=== PATIENT | female | born 1940 | race Caucasian/White ===

== ENCOUNTER 2017-02-01 11:14 | Inpatient (IN) ==
[2017-02-01] MEDS ORDERED: ATIVAN ONE (11:16)
[2017-02-01] MEDS ORDERED: DIPRIVAN 1% IV STA (11:25)
[2017-02-01] MEDS ORDERED: ASPIRIN PO STA (11:25)
[2017-02-01] MEDS ORDERED: DIPRIVAN 1% 1,000 MG/100 ML BOTTLE ONE ×2 (11:26→15:22)
[2017-02-01] MEDS ORDERED: ATIVAN IV ONE ×2 (11:37→13:10)
--- NOTE | 2017-02-01 11:37 | Diag Imaging Result Doc PS360 ---
EXAM: CHEST-1 VIEW HISTORY: arrest TECHNIQUE: Portable supine AP COMPARISON: 07/25/2016 FINDINGS: The lungs are well expanded. The heart is enlarged. The vessels are not distended. Increased density along the right heart border. No effusion identified. The endotracheal tube appears to be angled into the right mainstem bronchus. IMPRESSION: 1.Cardiomegaly 2.Right middle lobe infiltrate or atelectasis 3.The endotracheal tube may be in the right mainstem bronchus. The ER was called with this finding. Electronically signed by Андрей Brunner 02/01/2017 11:35 AM
[2017-02-01] MEDS: DIPRIVAN 1% 1,000 MG/100 ML BOTTLE IV SCH ×8 (11:48→21:04)
[2017-02-01] MEDS ORDERED: NS 500 ML IV ONE (11:51)
[2017-02-01 11:57] LABS: MANUAL DIFF NEEDED? NO
[2017-02-01 12:09] LABS: BASO% 0.5 % (0.0-0.8); EOS# 0.18 X1000 (0.0-0.7); EOS% 1.1 % (0.0-10.0); HEMATOCRIT 42.5 % (37.0-47.0); HEMOGLOBIN 13.5 g/dL (12.0-16.0); IMM GRAN% 4.7 % (0.0-0.5); LYMPH# 5.49 X1000 (1.2-3.4); LYMPH% 32.5 % (20.5-51.1); MCH 32.5 PG (27-31); MCHC 31.8 g/dL (33-37); MCV 102.4 FL (81-99); MONO# 0.54 X1000 (0.11-0.59); MONO% 3.2 % (1.7-9.3); MPV 12.4 FL (7.4-10.4); PLT 240 X1000 (130-400); RBC 4.15 XMIL (4.2-5.4)
--- NOTE | 2017-02-01 12:15 | Diag Imaging Result Doc PS360 ---
EXAM: CHEST-PORTABLE HISTORY: tube placement TECHNIQUE: COMPARISON: Compared to film taken 25 minutes earlier FINDINGS: The exam is compromised due to the patient's size. Heart remains enlarged. I'm unable to see the distal portion of the patient's tubes. No pleural effusions identified. IMPRESSION: Limited exam. The endotracheal tube may be in the trachea on the current study although it is difficult to see due to the patient's body habitus. Electronically signed by Андрей Brunner 02/01/2017 12:13 PM
--- NOTE | 2017-02-01 12:21 | Diag Imaging Result Doc PS360 ---
EXAM: CHEST/ABD TUBE PLACEMENT HISTORY: Tube Placement TECHNIQUE: Portable NG tube placement abdomen COMMENT: There is no identifiable NG tube. There is atherosclerotic calcification throughout the aorta. There is colonic gas. IMPRESSION: No identified tube. Electronically signed by Sai Lawrence 02/01/2017 12:19 PM
[2017-02-01 12:22] LABS: INR 1.05; PROTIME 11.1 Seconds (9.2-11.7); PTT 27.8 Seconds (22.0-36.0)
[2017-02-01 12:40] LABS: ALLEN TEST YES; BLOOD TYPE ARTERIAL; DRAW SITE L RADIAL; O2(CT) 17.9 mL/dL (15.0-23.0); SAMPLE BLOOD; SRATE 14 BPM; TVOL 500 mL
--- NOTE | 2017-02-01 12:41 | Diag Imaging Result Doc PS360 ---
EXAM: CHEST-PORTABLE HISTORY: ett placement TECHNIQUE: AP portable supine at 1220 COMMENT: There is an endotracheal tube with its tip slightly below the thoracic inlet but well above the nael. Otherwise has been no significant change since the previous examination of 02/01/2017. IMPRESSION: Endotracheal tube in good position. Electronically signed by Sai Lawrence 02/01/2017 12:38 PM
[2017-02-01 12:44] LABS: BE -10.3 mmoll (-3.0-3.0); METHB 0.1 % (0.0-1.5); PCO2(98.6) 34 mmHg (35-45); PO2(98.6) 74 mmHg (60-100); SAO2 96.9 % (95.0-100.0); THB 13.5 g/dL (11.5-17.4); pH(98.6) 7.27 (7.35-7.45)
[2017-02-01 12:46] LABS: MODALITY VENTILATOR
[2017-02-01 12:46] LABS: ALBUMIN 3.3 g/dL (3.5-5.0); CALCIUM 7.9 mg/dL (8.8-10.2); MAGNESIUM 2.3 mg/dL (1.5-2.7); POTASSIUM 5.3 mmol/L (3.5-5.1); TOTAL BILIRUBIN 0.25 mg/dL (0.20-1.00); TOTAL PROTEIN 5.8 g/dL (6.3-8.3)
[2017-02-01 13:05] LABS: URINE MICRO REVIEW NEEDED? NO; URINE SOURCE VOIDED
[2017-02-01 13:10] LABS: BILIRUBIN URINE NEGATIVE (NEGATIVE); BLOOD URINE NEGATIVE (NEGATIVE); COLOR YELLOW; GLUCOSE URINE NEGATIVE (NEGATIVE); LEUKOCYTES URINE NEGATIVE (NEGATIVE); NITRITE URINE NEGATIVE (NEGATIVE); PH URINE 5.5; PROTEIN URINE NEGATIVE (NEGATIVE); TURBIDITY URINE CLEAR (CLEAR); UROBILINOGEN URINE NORMAL (NORMAL)
[2017-02-01 13:12] LABS: UR EPITHELIAL CELLS <10 /HPF (<10); URINE BACTERIA NEGATIVE /HPF; URINE RBC <10 /HPF (<10); URINE WBC <10 /HPF (<10)
[2017-02-01] MEDS ORDERED: DOPAMINE 400 MG/D5W 400 MG/500 ML IV.SOLN IV SCH (13:45)
--- NOTE | 2017-02-01 13:55 | PROVIDER DOCUMENTATION ---
This chart was entered by Becky Zavala Scribe, acting as scribe for Ralph Vaughan MD. HPI-Cardiopulmonary Arrest - General Stated Complaint: post full arrest Time Seen by Provider: 02/01/17 11:14 Source: EMS Allergies/Adverse Reactions: Allergies Allergy/AdvReac Type Severity Reaction Status Date / Time No Known Allergies Allergy Verified 07/23/16 16:22 Home Medications: Home Medication List Medication Instructions Recorded Confirmed Last Taken Type Albuterol 2.5MG/Ipratrop 0.5MG 3 ml INH RTQ6H 07/23/16 07/23/16 Unknown History [Duoneb (A & A)] Bupropion S.r. [Wellbutrin Sr] 150 mg PO BID 07/23/16 07/23/16 Unknown History Bupropion S.r. [Wellbutrin Sr] 150 mg PO DAILY 07/23/16 07/23/16 Unknown History Furosemide [Lasix] 40 mg PO BID 07/23/16 07/23/16 Unknown History Potassium Chloride [Klor-Con M20] 20 meq PO DAILY 07/23/16 07/23/16 Unknown History Azithromycin [Zithromax] 250 mg PO Q24H #0 tablet 07/27/16 Unknown Rx Benzonatate [Tessalon] 100 mg PO TID PRN PRN #0 capsule 07/27/16 Unknown Rx CefDINIR [Omnicef] 300 mg PO BID #14 capsule 07/27/16 Unknown Rx Cholecalciferol (Vit D3) [Vitamin 2,000 unit PO DAILY #0 tablet 07/27/16 Unknown Rx D3] Digoxin [Lanoxin] 125 microgm PO DAILY #0 tablet 07/27/16 Unknown Rx Lorazepam [Ativan] 0.5 mg PO RTQ6H #30 tablet 07/27/16 Unknown Rx Losartan [Cozaar] 25 mg PO BID #0 tablet 07/27/16 Unknown Rx Nicotine Patch [Nicoderm Patch] 21 mg TD DAILY #0 patch.td24 07/27/16 Unknown Rx Potassium Chloride E.r. [Klor-Con] 20 meq PO DAILY #0 tablet 07/27/16 Unknown Rx Prednisone 20 mg PO DAILY #0 07/27/16 07/23/16 Unknown Rx - History of Present Illness-C/P Arrest Initial Comments: Pt is 76 y/o F presents to the ED with post full arrest. EMS states Pt was at [facility] and collapsed in front of the [employer]. EMS states bystander CPR started. EMS states down time was 9 minutes. EMS states Pt was in V fib and was shocked 5 times and then converted to A fib. EMS states 300 of amio, 1 bicarb, 2 epi and 400 of NS 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. EMS states thumper and tube was placed 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. EMS states Pt become awake and alert 3 minutes 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. Reason for Code Blue?: full arrest Witnessed arrest?: Yes Noted by:: other (bystander) Bystander CPR?: Yes CPR initiated before doctor arrival?: Yes Down-time before ACLS? (in minutes, if known): 9 Initial Findings: unresponsive, V. Fib Treatment initiated prior to doctor arrival?: Initiated intubated, Initiated CPR /thumper (thumper), Initiated IV fluids (400 NS), Initiated epinephrine #mg (2) , Initiated amiodarone (300), Initiated sodium bicarb # amps (1) Similar Symptoms Previously?: No Recently seen or treated by another doctor?: No - Pre-hospital Treatment EMS Initial Findings:: unresponsive, other rhythm (V fib) EMS Initial EKG Rhythm: V fib Pre-hospital Treatment: Initiated intubated, Initiated CPR (thumper), Initiated IV fluids (400 NS), Initiated epinephrine (2), Initiated amiodarone (300), Initiated other (1 bicarb) Review of Systems - Adult - REVIEW OF SYSTEMS - ADULT ROS:: limited per condition Constitutional: reports: no symptoms reported Eyes: reports: no symptoms reported Ears, Nose, Mouth & Throat: reports: no symptoms reported Cardiovascular: reports: other (V fib; 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) Respiratory: reports: other (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) Gastrointestinal: reports: no symptoms reported Genitourinary: reports: no symptoms reported Musculoskeletal: reports: no symptoms reported Integumentary: reports: no symptoms reported Neurological: reports: no symptoms reported Psychiatric: reports: no symptoms reported Endocrine: reports: no symptoms reported Hematologic/Lymphatic: reports: no symptoms reported Allergic/Immunologic: reports: no symptoms reported All Other Systems: Reviewed and Negative Past History - Adult - PAST MEDICAL HISTORY-ADULT Review of Records: reports: Nursing Assessment Review, Medications Reviewed, Social history reviewed & non-contributory. Major Childhood Illnesses: reports: denies history Cardiovascular: reports: HTN Respiratory: reports: COPD Gastrointestinal: reports: denies history Obstetrical/Gynecological: reports: denies history Genitourinary: reports: denies history Musculoskeletal: reports: denies history Neurological: reports: denies history Endocrine/Immune: reports: denies history Other Conditions: reports: denies history - PRIOR SURGERIES/PROCEDURES Surgical/Procedure History: reports: reviewed, not pertinent - IMMUNIZATION STATUS Childhood Immunizations: See Nurse Assessment Flu Vaccine: See Nurse Assessment - FAMILY HISTORY Family History: reviewed, not pertinent - SOCIAL HISTORY Smoking: cigarettes, greater than 1 pack/day Provider spent 3-5 mins advising pt. on dangers of tobacco.: Discussed manners to quit use, and f/u contacts for add'l counseling. Substance Use: denies Living Situation: family Physical Exam-General - PHYSICAL EXAM-ADULT Initial Vital Signs Reviewed: Yes - CONSTITUTIONAL General Appearance: obese, combative - EYES Eyes: PERRL/EOMI, pink conjunctivae. negative: scleral icterus - HEAD, EARS, NOSE, MOUTH & THROAT HENMT: normocephalic/atraumatic, moist mucous membranes - NECK Neck: full range of motion, supple - RESPIRATORY Respiratory: chest non-tender, lungs clear, normal breath sounds, no pleuratic chest pain, no respiratory distress, no accessory muscle use - CARDIOVASCULAR Cardiovascular: bradycardia, irregularly irregular - GASTROINTESTINAL (ABDOMEN) Abdominal Exam: non tender - MUSCULOSKELETAL Extremity: no pedal edema - SKIN Integumentary: normal color - NEUROLOGIC Neurologic: grossly normal Progress - PLAN OF CARE/RESULTS Progress/Plan/Lab Results: Vital Signs - 8 hr 02/01/17 11:38 02/01/17 11:50 02/01/17 12:01 Temperature 98.7 F Pulse Rate 73 63 57 L Respiratory Rate 14 14 14 Blood Pressure 158/56 88/71 83/58 O2 Sat by Pulse Oximetry 98 95 92 L 02/01/17 12:30 02/01/17 12:58 Temperature Pulse Rate 57 L Respiratory Rate 34 H Blood Pressure 95/36 104/49 O2 Sat by Pulse Oximetry 93 L 02/01/17 11:40 - Final Sputum Laboratory Results - last 24 hr 02/01/17 02/01/17 02/01/17 11:47 11:47 11:47 WBC 16.88 H RBC 4.15 L Hgb 13.5 Hct 42.5 MCV 102.4 H MCH 32.5 H MCHC 31.8 L RDW Std Deviation 13.3 Plt Count 240 MPV 12.4 H Immature Gran % (Auto) 4.7 H Neut % (Auto) 58.0 Lymph % (Auto) 32.5 Harnett % (Auto) 3.2 Eos % (Auto) 1.1 Baso % (Auto) 0.5 Immature Gran # (Auto) 0.80 H Neut # (Auto) 9.79 H Lymph # (Auto) 5.49 H Harnett # (Auto) 0.54 Eos # (Auto) 0.18 Baso # (Auto) 0.08 PT INR PTT (Actin FS) D-Dimer 6.32 H Specimen Type Sample Site pH pCO2 pO2 HCO3 Base Excess Oxyhemoglobin ABG O2 Sat (Calculated) ABG O2 Saturation ABG Carboxyhemoglobin ABG Methemoglobin Gaetano Test A-a O2 Difference Total Hemoglobin Lactate Blood Gas Modality Vent Mode Spontaneous Rate FiO2 % Tidal Volume PEEP Sodium 139 Potassium 5.3 H Chloride 99 Carbon Dioxide 13 L Anion Gap 27 BUN 26 H Creatinine 1.2 H Estimated GFR/1.73 m2 44 BUN/Creatinine Ratio 22 Glucose 296 H Calculated Osmolality 293 Calcium 7.9 L Magnesium 2.3 Total Bilirubin 0.25 AST 88 H ALT 61 H Alkaline Phosphatase 94 Creatine Kinase 152 Troponin T Pov-Z-Rgjsnbgjbty Pept Total Protein 5.8 L Albumin 3.3 L Globulin 2.5 Albumin/Globulin Ratio 1.3 Urine Source Urine Color Urine Turbidity Urine pH Ur Specific [place] Urine Protein Ur Glucose (Stick) Ur Ketones (Stick) Urine Blood Urine Nitrite Urine Bilirubin Urobilinogen Dipstick Urine Leukocytes Urine WBC (Auto) Urine RBC (Auto) U Epithel Cells (Auto) Urine Bacteria (Auto) 02/01/17 02/01/17 02/01/17 11:47 11:47 11:47 WBC RBC Hgb Hct MCV MCH MCHC RDW Std Deviation Plt Count MPV Immature Gran % (Auto) Neut % (Auto) Lymph % (Auto) Harnett % (Auto) Eos % (Auto) Baso % (Auto) Immature Gran # (Auto) Neut # (Auto) Lymph # (Auto) Harnett # (Auto) Eos # (Auto) Baso # (Auto) PT 11.1 INR 1.05 PTT (Actin FS) 27.8 D-Dimer Specimen Type Sample Site pH pCO2 pO2 HCO3 Base Excess Oxyhemoglobin ABG O2 Sat (Calculated) ABG O2 Saturation ABG Carboxyhemoglobin ABG Methemoglobin Gaetano Test A-a O2 Difference Total Hemoglobin Lactate Blood Gas Modality Vent Mode Spontaneous Rate FiO2 % Tidal Volume PEEP Sodium Potassium Chloride Carbon Dioxide Anion Gap BUN Creatinine Estimated GFR/1.73 m2 BUN/Creatinine Ratio Glucose Calculated Osmolality Calcium Magnesium Total Bilirubin AST ALT Alkaline Phosphatase Creatine Kinase Troponin T < 0.010 Wsv-A-Gpgbdyguggj Pept 1355 H Total Protein Albumin Globulin Albumin/Globulin Ratio Urine Source Urine Color Urine Turbidity Urine pH Ur Specific [place] Urine Protein Ur Glucose (Stick) Ur Ketones (Stick) Urine Blood Urine Nitrite Urine Bilirubin Urobilinogen Dipstick Urine Leukocytes Urine WBC (Auto) Urine RBC (Auto) U Epithel Cells (Auto) Urine Bacteria (Auto) 02/01/17 02/01/17 12:38 13:01 WBC RBC Hgb Hct MCV MCH MCHC RDW Std Deviation Plt Count MPV Immature Gran % (Auto) Neut % (Auto) Lymph % (Auto) [place]ett % (Auto) Eos % (Auto) Baso % (Auto) Immature Gran # (Auto) Neut # (Auto) Lymph # (Auto) [place]arnett # (Auto) Eos # (Auto) Baso # (Auto) PT INR PTT (Actin FS) D-Dimer Specimen Type ARTERIAL Sample Site L RADIAL pH 7.27 L pCO2 34 L pO2 74 HCO3 16.8 L Base Excess -10.3 L Oxyhemoglobin 94.2 L ABG O2 Sat (Calculated) 17.9 ABG O2 Saturation 96.9 ABG Carboxyhemoglobin 2.60 H ABG Methemoglobin 0.1 Gaetano Test YES A-a O2 Difference 311.0 Total Hemoglobin 13.5 Lactate 6.40 H* Blood Gas Modality VENTILATOR Vent Mode A/C Spontaneous Rate 14 FiO2 % 60.0 Tidal Volume 500 PEEP 5.0 Sodium Potassium Chloride Carbon Dioxide Anion Gap BUN Creatinine Estimated GFR/1.73 m2 BUN/Creatinine Ratio Glucose Calculated Osmolality Calcium Magnesium Total Bilirubin AST ALT Alkaline Phosphatase Creatine Kinase Troponin T Xcn-U-Jcdctoisnli Pept Total Protein Albumin Globulin Albumin/Globulin Ratio Urine Source VOIDED Urine Color YELLOW Urine Turbidity CLEAR Urine pH 5.5 Ur Specific [place] 1.020 Urine Protein NEGATIVE Ur Glucose (Stick) NEGATIVE Ur Ketones (Stick) NEGATIVE Urine Blood NEGATIVE Urine Nitrite NEGATIVE Urine Bilirubin NEGATIVE Urobilinogen Dipstick NORMAL Urine Leukocytes NEGATIVE Urine WBC (Auto) <10 Urine RBC (Auto) <10 U Epithel Cells (Auto) <10 Urine Bacteria (Auto) NEGATIVE Orders Category Date Time Status Cardiac Monitoring DIRECTED Care 02/01/17 11:25 Active Romero Cath Insertion ORDERED Care 02/01/17 11:39 Active Neurological Check Q12-HR ASSESS Care 02/01/17 11:26 Active Saline Loc NOW Care 02/01/17 11:25 Active CHEST-1 VIEW [RAD] Stat Exams 02/01/17 11:25 Completed CHEST-PORTABLE [RAD] Stat Exams 02/01/17 11:37 Completed CHEST-PORTABLE [RAD] Stat Exams 02/01/17 12:28 Completed CHEST/ABD TUBE PLACEMENT [RAD] Stat Exams 02/01/17 11:53 Completed CTA [ANGIOGRAM/PULMONARY ARTERIES] [CT] Stat Exams 02/01/17 13:22 Ordered HEAD W/O CONTRAST [CT] Stat Exams 02/01/17 13:46 Ordered ABG [RESP] Routine Lab 02/01/17 12:38 Completed BLOOD CULTURE [BLDCUL] Stat Lab 02/01/17 13:51 Ordered CBC WITH ELECTRONIC DIFF [HEME] Stat Lab 02/01/17 11:47 Completed CK PROFILE [SP CHEM] Stat Lab 02/01/17 11:47 Completed COMPREHENSIVE METABOLIC PANEL [CHEM] Stat Lab 02/01/17 11:47 Completed Cardiac Profile [CK PROFILE] [SP CHEM] Stat Lab 02/01/17 13:51 Uncollected D-DIMER [CHEM] Stat Lab 02/01/17 11:47 Completed LACTATE, PLASMA [CHEM] Stat Lab 02/01/17 13:51 Uncollected MAGNESIUM [CHEM] Stat Lab 02/01/17 11:47 Completed PRO B-NATRIURETIC PEPTIDE Stat Lab 02/01/17 11:47 Completed PROTIME WITH INR [COAG] Stat Lab 02/01/17 11:47 Completed PTT [COAG] Stat Lab 02/01/17 11:47 Completed SPUTUM CULTURE WITH GRAM STAIN [RM] Routine Lab 02/01/17 11:40 Results TROPONIN T Stat Lab 02/01/17 11:47 Completed TROPONIN T Stat Lab 02/01/17 13:52 Uncollected TSH Stat Lab 02/01/17 13:52 Uncollected URINALYSIS [URINALYSIS] Stat Lab 02/01/17 13:01 Completed 0.9% Sodium Chloride Inj [Ns] 500 ml Med 02/01/17 11:51 Discontinued IV 999 mls/hr Aspirin Med 02/01/17 11:25 Discontinued 325 mg PO STAT STA Dopamine 400 mg/D5w Med 02/01/17 13:45 Active 400 mg in 500 ml IV 48 mls/hr Lorazepam [Ativan] Med 02/01/17 11:16 Discontinued 2 mg .ROUTE .STK-MED ONE Lorazepam [Ativan] Med 02/01/17 11:37 Discontinued 2 mg IV NOW ONE Lorazepam [Ativan] Med 02/01/17 13:10 Discontinued 4 mg IV NOW ONE Propofol [Diprivan 1%] Med 02/01/17 11:25 Discontinued 10 mg IV STAT STA Propofol [Diprivan 1%] Med 02/01/17 11:26 Discontinued 1,000 mg in 100 ml .ROUTE As Directed Propofol [Diprivan 1%] Med 02/01/17 11:25 Active 1,000 mg in 100 ml IV As Directed Ventilator Order Stat Oth 02/01/17 11:51 Active EKG [EKG] Stat Ther 02/01/17 11:25 Ordered Echo Spec/Color Dop W/O Contra Stat Ther 02/01/17 13:48 Ordered Transfer/Admit Order [TRANSFER] Routine Transfer 02/01/17 13:49 Ordered Result Diagrams: 02/01/17 11:47 02/01/17 11:47 - EKG 1 Time of EKG reading by physician:: 11:21 EKG Read and Signed by:: Ralph Vaughan EKG Interpretation (*Must complete 3 of following elements*): Abnormal ( possible inferior infarct, age undetermined) Rate: 67 Rhythm: atrial fibrillation Comments: nonspecific intraventricular block; - XRAY 1 XRAY Study: Chest Impression: Abnormal (the endotracheal tube may be in the right mainstem bronchus. the ER was called with this finding.) XRAY Interpretation: cardiomegaly; right middle lobe infiltrate or atelectasis 2 XRAY Study: Chest, other (ABD placement) Impression: Normal XRAY Interpretation: no identified tube 3 XRAY Study: Chest Impression: Abnormal (the endotracheal tube may be in the trachea on the current study although it is difficult to see dueto the patient's body habitus.) XRAY Interpretation: limited exam 4 XRAY Study: Chest Impression: Abnormal XRAY Interpretation: endotracheal tube in good position - CONSULTS/PCP/HOSPITALIST Notification #1 *Consult/PCP/Hospitalist*: Hospitalist Time Discussed: 13:40 Reason/Comments: Dr. Vaughan consults with Hospitalist about admit of PT Consult Disposition: Admit Departure - Departure Date of Disposition Decision: 02/01/17 Time of Disposition Decision: 13:41 DIAGNOSIS: Cardiac arrest Atrial fibrillation Qualifiers: Atrial fibrillation type: unspecified Qualified Code(s): I48.91 - Unspecified atrial fibrillation Disposition: ADMITTED INPATIENT 09 Certified Medical Emergency: Emergent Condition: Critical Referrals and Follow-Ups: None,PCP [Primary Care Provider] - - Critical Care Note This patient required my direct & personal management of CC.: Yes Total Time (mins): 30 Critical Care Statement: This patient required my direct personal management to treat or rule out processes, the absence of which, could potentiallly result in sudden, clinically significant life or limb threatening deterioration. This chart was documented by the indicated scribe, (Becky Zavala Scribe) and accurately reflects the services I performed and decisions made by me, Ralph Vaughan MD, as attested by the provider's signature.
--- NOTE | 2017-02-01 14:53 | Diag Imaging Result Doc PS360 ---
EXAM: HEAD W/O CONTRAST HISTORY: cardiopulmonary arrest TECHNIQUE: CT of the head without contrast with dose reduction (clarity.) COMMENT: There is mild generalized cerebral atrophy. There is lucency in the external capsule and internal capsule lateral to the left caudate head. No evidence of bleed mass effect or abnormal extra-axial fluid collection is present. There is fluid in the mastoid air cells bilaterally, the sphenoid sinuses and one of the anterior left ethmoid sinuses. There is soft tissue swelling over the right brow. There may be a scalp hematoma posteriorly on the left. The calvarium appears to be intact. IMPRESSION: Chronic ischemic changes. Superficial soft tissue swelling. Paranasal sinus disease as described. Electronically signed by Sai Lawrence 02/01/2017 2:50 PM
--- NOTE | 2017-02-01 14:58 | Diag Imaging Result Doc PS360 ---
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 There is an endotracheal tube tip of which terminates above the nael. There is an NG tube in in the esophagus. There is considerable motion artifact. The central pulmonary arteries are without evidence of pulmonary emboli. There is extensive atherosclerotic calcification in the aorta. There is a large pleural fluid collection on the right. There is atelectasis of much of the right upper and lower lobes. Numerous granulomata are present in the spleen. There is a fracture of the right anterior second rib, the lateral third rib the lateral fourth rib, the anterolateral fifth rib on the right and the lateral sixth rib. There may be a seventh rib fracture although this may be due to artifact. There are apparent fractures of the left third fourth fifth sixth and seventh ribs none of the rib abnormalities are demonstrated on the previous examination of 07/24/2016. IMPRESSION: No definite pulmonary emboli. Right pleural effusion. Atelectasis or versus pneumonia particularly in the right lower lobe. Multiple rib fractures. Electronically signed by Sai Lawrence 02/01/2017 2:56 PM
[2017-02-01] MEDS ORDERED: ATIVAN IV PRN ×2 (15:09→23:04)
[2017-02-01] MEDS ORDERED: VANCOMYCIN IV PER PHARMACY MISC SCH (15:15)
[2017-02-01 15:59] LABS: UR AMPHETAMINES QUAL NONE DETECTED (NONE DETECT); UR BARBITUATES QUAL NONE DETECTED (NONE DETECT); UR BENZODIAZEPIN QUAL NONE DETECTED (NONE DETECT); UR CANNABINOIDS QUAL NONE DETECTED (NONE DETECT); UR COCAINE QUAL NONE DETECTED (NONE DETECT); UR METHADONE QUAL NONE DETECTED (NONE DETECT); UR OPIATES QUAL NONE DETECTED (NONE DETECT); UR OXYCODONE QUAL NONE DETECTED (NONE DETECT); UR PCP QUAL NONE DETECTED (NONE DETECT)
[2017-02-01] MEDS ORDERED: SODIUM CHLORIDE 0.9% 10 ML ONE (16:18)
[2017-02-01] MEDS ORDERED: DUONEB (A & A) INH PRN (16:20)
[2017-02-01] MEDS ORDERED: ZOFRAN IV PRN (16:20)
[2017-02-01 16:24] LABS: ALLEN TEST YES; BE -5.5 mmoll (-3.0-3.0); BLOOD TYPE ARTERIAL; DRAW SITE L RADIAL; METHB 0.9 % (0.0-1.5); O2(CT) 18.2 mL/dL (15.0-23.0); PCO2(98.6) 47 mmHg (35-45); PO2(98.6) 62 mmHg (60-100); SAMPLE BLOOD; SAO2 92.5 % (95.0-100.0); SRATE 10 BPM; THB 14.4 g/dL (11.5-17.4); TVOL 500 mL; pH(98.6) 7.27 (7.35-7.45)
[2017-02-01 16:25] LABS: MODALITY VENTILATOR
--- NOTE | 2017-02-01 16:33 | HISTORY AND PHYSICAL ---
KETTLE GIRL: Dr. Shankar Harden. CHIEF COMPLAINT: A witnessed cardiopulmonary arrest. HISTORY OF PRESENT ILLNESS: Mrs. Egan is a 76-year-old female with a history of morbid obesity, COPD, congestive heart failure who had witnessed cardiopulmonary arrest while standing in line at the [facility] earlier today. The patient is intubated and sedated at this time and cannot give a history. Her daughter at the bedside states that she was standing in line at the [facility] when she fell to the ground, an EMT who was also standing in line immediately started BLS and 911 was called. It took the ambulance around 9 minutes to get to the [facility] at which time defibrillator was attached at the patient and was noted to be in VF. The patient had defibrillation and epinephrine which brought return of spontaneous circulation. She was brought to the ER here. In the ER she had a head CT done which did not show anything acute, CTA of the chest showed right pleural effusion with atelectasis in the right lower lobe. Multiple rib fractures were noted. Her laboratory data shows leukocytosis, elevated D-dimer, metabolic acidosis with lactic acidosis, mild renal insufficiency and elevated glucose. She is currently mildly hypotensive and is on pressors. She is going to be going to the ICU for further treatment and evaluation. PAST MEDICAL HISTORY: 1. Congestive heart failure, systolic with known ejection fraction about 40% with echocardiogram done in July of last year. 2. Paroxysmal atrial fibrillation. Unclear if patient is on anticoagulation. 3. Morbid obesity. 4. COPD. 5. History of DVTs and PE. 6. Remote history of nicotine dependence. 7. Depression. SURGICAL HISTORY: She has had bilateral knee arthroplasties, she has had bilateral femur ORIF, she has had a hysterectomy, appendectomy and tonsillectomy. FAMILY HISTORY: Noncontributory. SOCIAL HISTORY: Patient is . She lives alone. She recently quit smoking and drinks around 3 beers a day. No history of drug use. DRUG ALLERGIES: No known drug allergies. HOME MEDICATIONS: Currently being compiled. REVIEW OF SYSTEMS: Unable to obtain. PHYSICAL EXAMINATION: VITAL SIGNS: Blood pressure is 104/49, heart rate 57, respiratory rate 34, O2 saturation 93% on 100% mechanical ventilation, temperature is 98.7 degrees. GENERAL: Morbidly obese female lying in hospital bed intubated and sedated. NEUROLOGIC: The patient is intubated and sedated on propofol currently. HEENT: Head is atraumatic and normocephalic. Her pupils are equal, round, reactive to light. Oral mucosa is moist. ET tube and NG tube are noted. OG-tube does have some bloody drainage. NECK: Unable to assess. CHEST: With rhonchi over the right lung base. CV: Regular rate, S1-S2 is noted. No murmurs. GI: Obese, nondistended. Hypoactive bowel sounds noted. EXTREMITIES: With trace to 1+ edema. Pulses diminished but palpable. DIAGNOSTIC DATA: Head CT. Chronic change, nothing acute. CTA shows a right pleural effusion but no definite evidence of PE. There are rib fractures noted. Chest x-ray shows ET tube in good position. WBC 16.88, hemoglobin 13.5, hematocrit 42.5, MCV 102.4, platelet count 240,000. D-dimer 6.32, INR 1.05. ABG on 100% mechanical ventilation pH 7.27, CO2 34, O2 of 74, bicarb 16.8, lactate 6.4. Sodium 139, potassium 5.3, chloride 99, CO2 13, anion gap 27, BUN 26, creatinine 1.2, glucose 296, calcium 7.9, AST 88, ALT 61, ProBNP 1355, albumin 3.3. UA is negative. ASSESSMENT/PLAN: 1. Cardiopulmonary arrest: At this time etiology unclear, no evidence of pulmonary embolism or myocardial infarction at this time. We are going to check a stat echocardiogram, trend her enzymes and continue monitor telemetry, check electrolytes and follow closely in ICU. She is on mechanical ventilation. Will consult pulmonary critical care, start her on DVT and GI prophylaxis. Will also put her on broad-spectrum antibiotics for possible aspiration pneumonia. 2. Lactic acidosis: Again unclear, likely secondary to cardiopulmonary resuscitation and defibrillation. She is mildly hypotensive. She is being treated with antibiotics, fluids and pressors. Will follow cultures and treat accordingly. 3. Congestive heart failure: She does have fairly large right pleural effusion. We are going to check an echocardiogram, trend her enzymes. Obviously at this time we do not want to give any diuresis but she does not seem to be in overt failure at this time. 4. Mild renal insufficiency: Likely prerenal secondary to cardiopulmonary arrest. Will continue with fluids and trend her creatinine. 5. Chronic obstructive pulmonary disease: Will continue with breathing treatments and antibiotics, will add aggressive pulmonary toilet, pulmonary has been consulted on. Will check daily ABGs and chest x-ray. 6. Deep vein thrombosis and gastrointestinal prophylaxis will be provided with Lovenox and IV Zantac. TIME SPENT: Critical care time with this patient 45 minutes. Dictated by WARREN Wu for Anoop Mancera MD cc: WARREN Wu MD
[2017-02-01] MEDS: PEPCID IV SCH ×2 (16:43→20:21)
[2017-02-01] MEDS: NS 1,000 ML IV SCH (17:00)
[2017-02-01] MEDS: ZOSYN 3.375 GM/NS 3.375 GM/50 ML IVPB IV SCH ×2 (17:02→20:21)
[2017-02-01] MEDS: LEVOPHED 8 MG in D5 1/2 NS 250 ML IV SCH (17:06)
[2017-02-01] MEDS: DUONEB (A & A) INH SCH ×3 (17:09→23:15)
[2017-02-01 17:43] LABS: CALCIUM 8.1 mg/dL (8.8-10.2); POTASSIUM 5.3 mmol/L (3.5-5.1)
--- NOTE | 2017-02-01 17:49 | CONSULTATION ---
DATE OF CONSULTATION: 02/01/2017 DIAGNOSIS: Witnessed cardiorespiratory arrest. HISTORY OF PRESENT ILLNESS: The patient is intubated. History was obtained from the chart and discussing with family and nursing staff. Ms. Egan is a 76-year-old lady with history of obesity, COPD, heart failure, who was standing in line at the [facility] earlier today, had a cardiac arrest and EMT was tending. Immediately he started BLS and 911, and EMS was called. The patient was noted to be in atrial fibrillation, was defibrillated, went into atrial fibrillation, subsequently had a multiple CPR, and was intubated as she was brought to the emergency room and admitted. Has multiple rib fractures. CT scan of the chest revealed pleural effusion, atelectasis of the right lower lobe , no pulmonary embolism. Laboratory data shows leukocytosis, elevated D-dimer, and CT scan ruled out pulmonary embolism. CT head had no acute bleed. She was hypotensive, started on pressors. She is intubated, currently in sinus rhythm. Her electrocardiogram revealed a normal sinus rhythm, first- degree AV block with no acute ST-T changes to suggest ischemia and infarction. REVIEW OF SYSTEMS: Fourteen point could not be obtained from the patient as she was intubated. PAST MEDICAL HISTORY: Paroxysmal atrial fibrillation. Congestive heart failure. Morbid obesity. COPD. History of DVT and PE in the past. Bilateral knee arthroplasties. Bilateral femur ORIF. Hysterectomy. Appendectomy. Tonsillectomy. HOME MEDICATION: Currently being compiled. DRUG ALLERGIES: No known drug allergies. SOCIAL HISTORY: Patient is . She lives alone. She quit smoking. There is no history of alcohol abuse. PHYSICAL EXAMINATION: Vital Signs: Blood pressure 104/50 on dobutamine drip. Heart rate 70. Neck: Jugular venous pressure could not be assessed. Heart: First and second heart sounds were heard. There was no S3 gallop. Respiratory System: Distant breath sounds with scattered rhonchi. Abdomen: Obese, nontender. Central Nervous System: Could not be assessed. There was trace edema. DIAGNOSTIC DATA: Head CT: Chronic changes, no acute bleed. CT of the lung revealed right pleural effusion, no evidence of pulmonary embolism, multiple rib fractures. WBC 16.8, hemoglobin 13.5, hematocrit 42, Sodium 139, potassium 5.3, BUN 26, creatinine 1.2, proBNP 1355. ASSESSMENT NUMBER: 1. Cardiopulmonary arrest of unknown etiology. She was noted to have a ventricular fibrillation and subsequently cardioverted, was in atrial fibrillation, now is currently in sinus rhythm. We will get an echocardiogram to assess cardiac and valvular function. 2. Rule out myocardial infarction by serial cardiac enzymes. She has had significant compression with multiple rib fractures noted, and endotracheal tube has serosanguineous drainage. Pulmonary has been consulted. 3. Lactic acidosis probably secondary to cardiopulmonary arrest. 4. Likely infection. She is treated with antibiotics. 5. History of heart failure is followed up in our clinic. Per family, I had a detailed discussion with them yesterday, they had talked to her. She had been doing well, did not complain of any chest pain or worsening shortness of breath over the last few months at least. 6. Mild renal insufficiency noted. 7. History of chronic obstructive pulmonary disease. 8. As far as the etiology of cardiopulmonary arrest, it could be cardiac in etiology. We will get serial cardiac enzymes. She has an infiltrate, mild pleural effusion noted as well. Going to be treated with antibiotics and Pulmonary has been consulted. Thank you for the consult. We will follow hospital course. cc: Jorge Luis Carolina MD [facility] [place]
[2017-02-01 17:57] LABS: CK INDEX 2.5 (0.0-2.5); CK-MB 13.92 ng/mL (0.0-5.0)
[2017-02-01 18:36] LABS: ACETAMINOPHEN < 1.2 ug/mL (10-30); DIGOXIN < 0.2 ng/mL (0.9-2.0)
[2017-02-01] MEDS ORDERED: VANCOMYCIN 2,000 MG in NS 500 ML IV ONE (20:00)
[2017-02-01] MEDS ORDERED: MORPHINE IV PRN (23:05)
[2017-02-02] MEDS: ATIVAN IV PRN ×6 (02:17→23:23)
[2017-02-02] MEDS: ZOSYN 3.375 GM/NS 3.375 GM/50 ML IVPB IV SCH ×4 (02:35→20:19)
[2017-02-02] MEDS: LEVOPHED 8 MG in D5 1/2 NS 250 ML IV SCH ×2 (02:36→12:52)
[2017-02-02 02:49] LABS: CK INDEX 1.9 (0.0-2.5); CK-MB 12.57 ng/mL (0.0-5.0)
[2017-02-02] MEDS ORDERED: DUONEB (A & A) ONE ×2 (03:11→03:13)
[2017-02-02] MEDS: DUONEB (A & A) INH SCH ×6 (03:36→23:16)
[2017-02-02 04:35] LABS: ALLEN TEST YES; BE -4.4 mmoll (-3.0-3.0); BLOOD TYPE ARTERIAL; DRAW SITE R RADIAL; METHB 0.7 % (0.0-1.5); O2(CT) 20.3 mL/dL (15.0-23.0); PCO2(98.6) 36 mmHg (35-45); PO2(98.6) 57 mmHg (60-100); SAMPLE BLOOD; SAO2 90.5 % (95.0-100.0); SRATE 12 BPM; THB 16.3 g/dL (11.5-17.4); TVOL 500 mL; pH(98.6) 7.36 (7.35-7.45)
[2017-02-02 04:37] LABS: MODALITY VENTILATOR
[2017-02-02 05:41] LABS: HEMATOCRIT 39.1 % (37.0-47.0); HEMOGLOBIN 12.8 g/dL (12.0-16.0); MCH 32.4 PG (27-31); MCHC 32.7 g/dL (33-37); MPV 12.6 FL (7.4-10.4); RBC 3.95 XMIL (4.2-5.4)
[2017-02-02 06:09] LABS: CALCIUM 7.8 mg/dL (8.8-10.2); POTASSIUM 5.1 mmol/L (3.5-5.1)
--- NOTE | 2017-02-02 07:12 | Diag Imaging Result Doc PS360 ---
EXAM: CHEST-PORTABLE HISTORY: dyspnea TECHNIQUE: AP portable at 0500 COMMENT: There is an endotracheal tube with its tip at the thoracic inlet. There are pleural effusions bilaterally. The inspiration is slightly less optimal than on the previous study of 02/01/2017. The volume of pleural fluid on the right in particular is greater than on the previous study. There is apparent pulmonary edema which was not present previously. There is an nasogastric tube which appears to pass a below the diaphragm. IMPRESSION: Worsened pulmonary edema and pleural effusions particularly on the right. Electronically signed by Sai Lawrence 02/02/2017 7:10 AM
[2017-02-02] MEDS: NS 1,000 ML IV SCH (08:12)
[2017-02-02] MEDS: PEPCID IV SCH ×2 (08:12→20:12)
[2017-02-02 09:17] LABS: CK INDEX 1.2 (0.0-2.5); CK-MB 12.77 ng/mL (0.0-5.0)
[2017-02-02] MEDS: LOVENOX SUBQ SCH (10:08)
[2017-02-02 10:17] LABS: INR 1.04; PROTIME 10.9 Seconds (9.2-11.7)
[2017-02-02] MEDS: LASIX IV SCH (10:42)
[2017-02-02] MEDS: ASPIRIN PO SCH (10:42)
[2017-02-02] MEDS: MORPHINE IV PRN ×3 (10:56→20:12)
--- NOTE | 2017-02-02 11:04 | PROGRESS NOTE ---
DATE: 02/02/2017 SUBJECTIVE: This patient is still on mechanical ventilation and sedated. She is not following commands for me but, as per the nurse, she is following commands for her when the medication is about to be out of system. She has some blood clots coming out from the ET tube. For today, I will hold the enoxaparin and I will monitor. OBJECTIVE: Vital Signs: Temperature 97.8 degrees, pulse 76, respiratory rate 24, blood pressure 123/57, oxygen saturation 96% on mechanical ventilation, 50% FiO2. HEENT: Head normocephalic. No trauma. PERRLA. Neck supple. No JVD. No masses. Central trachea. Chest: Clear to auscultation. No wheezing. No rales. Abdomen soft, nontender, nondistended. No hepatosplenomegaly. Extremities: Lower extremity trace edema. Neurologic: The patient is sedated and intubated. LABORATORY: WBC 15.6, hemoglobin 12.8, hematocrit 39.1, platelets 216,000. Sodium 139, potassium 5.1, chloride 104, bicarbonate 17. BUN 39, creatinine 1.4, glucose 142. Calcium 7.8. ASSESSMENT AND PLAN: 1. Cardiopulmonary arrest. At this time, the etiology is unclear. No evidence of pulmonary embolism or myocardial infarction at this point. Cardiology Department is following this patient as well as Pulmonary Department. We will continue this patient on mechanical ventilation, sedated. Will continue to monitor her cardiac and pulmonary function. As per the nurse, this patient is following commands. 2. Anion gap metabolic acidosis likely secondary to cardiopulmonary resuscitation. Continue with the same management. 3. Congestive heart failure. This patient has a large right pleural effusion. We will continue with the same management for now. Cardiology Department is following this patient. 4. Mild renal insufficiency likely prerenal secondary to cardiopulmonary arrest. We will continue with the same management for now. All the cultures have been negative. Urine is clear. Continue with normal saline and pressors. 5. Chronic obstructive pulmonary disease. Continue with breathing treatment, antibiotics, and aggressive pulmonary toilet. Pulmonary department is following this patient. 6. Deep vein thrombosis prophylaxis. She has been on Lovenox but, today, I want to hold it because this patient is having clots coming out from the endotracheal tube. CRITICAL CARE TIME: 40 minutes. cc: Anoop Mancera MD
[2017-02-02] MEDS ORDERED: NS 250 ML ONE (11:46)
--- NOTE | 2017-02-02 13:40 | ECHO REPORT ---
ORDER DATE: 02/01/2017 INTERPRETING PHYSICIAN: Dr. Jorge Luis Carolina. ECHOCARDIOGRAPHIC MEASUREMENTS: Technically suboptimal study. Very poor acoustic window. Measurements could be accurately obtained. SUMMARY OF THE 2-DIMENSIONAL IMAGIN. Mitral valve was normal. Tricuspid valve was normal. 2. Aortic valve leaflets not well visualized. Pulmonic valve not well visualized. There is left atrial enlargement. 3. normal left ventricular cavity size. Estimated ejection fraction of 40%-45% . Endocardium not well visualized in all views. There is mild mitral regurgitation. 4. Mild tricuspid regurgitation. Peak velocity across the tricuspid valve was 3 m/sec. Pulmonary artery systolic pressure 46 mmHg. By Doppler studies, there is no aortic stenosis or regurgitation. 5. There is no pericardial effusion or obvious intracardiac mass or thrombus seen. cc: MD Dejan Padron CRNP MTDD
--- NOTE | 2017-02-02 14:05 | CONSULTATION ---
DATE OF CONSULTATION: 02/02/2017 REFERRING PHYSICIAN: Dr. Conley. CHIEF COMPLAINT: Cardiopulmonary arrest. HISTORY OF PRESENT ILLNESS: This is a 76-year-old, female with past medical history of CHF, paroxysmal atrial fibrillation, morbid obesity, COPD, history DVT and PE and situational depression brought to the hospital post cardiopulmonary arrest. It was witnessed at the [facility], [facility] and BLS was immediately started. She is now intubated in the ICU. REVIEW OF SYSTEMS: The review of systems are unable to obtain at this time. PAST MEDICAL HISTORY: As mentioned in HPI, otherwise noncontributory. PAST SURGICAL HISTORY: Bilateral knee arthroplasties, bilateral femur ORIF, hysterectomy, appendectomy, tonsillectomy. FAMILY HISTORY: Noncontributory. SOCIAL HISTORY: The patient is and lives at home alone. She recently stopped smoking and drinks approximately 3 beers per day. No history of illicit drug use. ALLERGIES: No known drug allergies. ACTIVE MEDICATIONS: 1. DuoNeb. 2. Lovenox. 3. Pepcid. 4. Ativan. 5. Vancomycin. 6. Morphine. 7. Levophed. 8. Zofran. 9. Zosyn. PHYSICAL EXAMINATION: Vital Signs: Blood pressure 123/57, heart rate 87, respiratory rate 26, temperature 97.9, oxygen saturation 94%. General: Morbidly obese female, lying in bed, sedated and intubated. HEENT: Normocephalic and atraumatic. ET tube in place. Cardiovascular: Regular rate and rhythm. S1, S2 present. Chest: Reduced entry with rhonchi over the right lung base. Abdomen: Obese, nondistended. Hypoactive bowel sounds throughout. Extremities: +1 pedal edema noted. Neuro: Sedated. LABS AND INVESTIGATIONS: WBC 15.67, RBC 3.95, hemoglobin 12.8, hematocrit 39.1 , platelet count 216. Sodium 139, potassium 5.1, chloride 104, carbon dioxide 17, anion gap 18, BUN 39, creatinine 1.4, glucose 142. Blood gas reveals pH 7.36, pCO2 of 36, PO2 of 57, HC03 21.2, base excess -4.4, saturated oxygen of 90.5. ASSESSMENT AND PLAN: This is a 76-year-old, female with past medical history mentioned in the history of present illness, that was brought to the hospital after a witnessed cardiopulmonary arrest. Respiratory failure and shock with pressors being tapered off. On AC vent. Basic life support was immediately initiated and she is currently intubated in the intensive care unit. Continue broad-spectrum antibiotics, inhaled bronchodilators, deep vein thrombosis and gastrointestinal prophylaxis. Further recommendations pending diagnostic studies. Thank you for the courtesy of this consult. Dictated by WARREN Ruvalcaba for Maria Alejandra King MD cc: WARREN Ruvalcaba MD [facility]
--- NOTE | 2017-02-02 16:42 | Diag Imaging Result Doc PS360 ---
EXAM: CHEST/ABD TUBE PLACEMENT HISTORY: OG placement TECHNIQUE: AP upper abdomen portable at 1624 COMMENT: There is an NG tube with its tip in the left upper quadrant presumably in the stomach. Numerous splenic granulomata are present. The spleen appears to be slightly enlarged. IMPRESSION: NG tube in the stomach. Electronically signed by Sai Lawrence 02/02/2017 4:39 PM
[2017-02-02] MEDS: VANCOMYCIN 1,500 MG in NS 250 ML IV SCH (19:04)
[2017-02-02] MEDS ORDERED: VANCOMYCIN 1,500 MG in NS 250 ML IV SCH (20:00)
[2017-02-03] MEDS: ATIVAN IV PRN ×2 (01:06→21:52)
[2017-02-03] MEDS: DUONEB (A & A) INH SCH ×6 (03:16→23:43)
[2017-02-03] MEDS: ZOSYN 3.375 GM/NS 3.375 GM/50 ML IVPB IV SCH ×4 (03:40→19:59)
[2017-02-03 04:48] LABS: ALLEN TEST YES; BE -1.9 mmoll (-3.0-3.0); BLOOD TYPE ARTERIAL; DRAW SITE R RADIAL; METHB 0.9 % (0.0-1.5); O2(CT) 19.7 mL/dL (15.0-23.0); PCO2(98.6) 36 mmHg (35-45); PO2(98.6) 55 mmHg (60-100); SAMPLE BLOOD; SAO2 91.5 % (95.0-100.0); SRATE 12 BPM; THB 15.8 g/dL (11.5-17.4); TVOL 500 mL
[2017-02-03 04:52] LABS: MODALITY VENTILATOR
[2017-02-03] MEDS: MORPHINE IV PRN ×3 (05:30→19:50)
[2017-02-03 05:56] LABS: HEMATOCRIT 34.7 % (37.0-47.0); HEMOGLOBIN 11.1 g/dL (12.0-16.0); MCH 32.8 PG (27-31); MCV 102.7 FL (81-99); MPV 12.1 FL (7.4-10.4); RBC 3.38 XMIL (4.2-5.4)
[2017-02-03 06:03] LABS: CALCIUM 7.6 mg/dL (8.8-10.2); POTASSIUM 4.3 mmol/L (3.5-5.1)
--- NOTE | 2017-02-03 07:07 | Diag Imaging Result Doc PS360 ---
EXAM: CHEST-PORTABLE HISTORY: dyspnea TECHNIQUE: AP portable chest at 0500 COMMENT: Compared to the previous study of 02/02/2017 there has been slight clearing of the left base. There is still considerable pulmonary edema. There is probable pleural fluid on the right if not on the left. IMPRESSION: Improved pulmonary edema. Electronically signed by Sai Lawrence 02/03/2017 7:05 AM
[2017-02-03] MEDS: PEPCID IV SCH ×2 (09:30→19:59)
[2017-02-03] MEDS: LASIX IV SCH ×2 (09:30→19:59)
[2017-02-03] MEDS: ASPIRIN PO SCH (09:31)
[2017-02-03] MEDS: LOVENOX SUBQ SCH (12:22)
--- NOTE | 2017-02-03 12:22 | PROGRESS NOTE ---
DATE: 02/03/2017 SUBJECTIVE: This patient is still on mechanical ventilation and sedated. She is still having some blood coming out from her endotracheal tube. The daughter brought some documentations of advanced directives and I discussed this with her. I will read and check all of that and make the changes in the DNR if I have to. OBJECTIVE: Vital Signs: Temperature 97.6 degrees, pulse 75, respiratory rate 18, blood pressure 123/65, oxygen saturation 98 on mechanical ventilation, 60% oxygen flow. HEENT: Head normocephalic. No trauma. PERRLA. Neck: Supple. No JVD. No masses. Central trachea. Chest: Clear to auscultation. No wheezing. No rales. Abdomen: Soft, nontender, nondistended. No hepatosplenomegaly. Extremities: No edema. No clubbing. No cyanosis. Neurological: The patient is sedated and intubated. LABORATORY: WBC 11.2, hemoglobin 11.1, hematocrit 34.7, platelets 149,000. Sodium 143, potassium 4.3, chloride 108, bicarbonate 22, BUN 32, creatinine 1.1, glucose 129, calcium 7.6, magnesium 2.1. ASSESSMENT AND PLAN: 1. Cardiopulmonary arrest. At this time the etiology is unclear. No evidence of pulmonary embolism or myocardial infarction at this point. Cardiology department is following this patient, as well as pulmonary department. Continue with mechanical ventilation for now. This patient is sedated. 2. Anion gap metabolic acidosis. Much better. Continue with the same management. 3. Congestive heart failure. This patient has a large pleural effusion. We will continue with the same treatment for now. Cardiology department is monitoring this patient. She is on furosemide 40 IV daily. 4. Mild renal insufficiency. This is getting better. The creatinine decreased from 1.4 to 1.1. She is making urine. She is off pressors. 5. Chronic obstructive pulmonary disease. Continue with breathing treatment, antibiotics, and aggressive pulmonary toilet. Pulmonary department is following this lady. 6. Deep vein thrombosis prophylaxis. She has been on Lovenox but today we will hold it because of bleeding through the endotracheal tube. CRITICAL CARE TIME: 35 minutes. Time discussing the advanced directive with the daughter, about 30 minutes. cc: Anoop Mancera MD
[2017-02-03] MEDS: VANCOMYCIN 1,500 MG in NS 250 ML IV SCH (19:33)
[2017-02-04] MEDS: MORPHINE IV PRN ×4 (00:01→19:30)
[2017-02-04] MEDS: ZOSYN 3.375 GM/NS 3.375 GM/50 ML IVPB IV SCH ×4 (03:13→20:07)
[2017-02-04] MEDS: DUONEB (A & A) INH SCH ×6 (03:24→23:30)
[2017-02-04 04:32] LABS: ALLEN TEST YES; BE 2.3 mmoll (-3.0-3.0); BLOOD TYPE ARTERIAL; DRAW SITE R RADIAL; METHB 0.5 % (0.0-1.5); PCO2(98.6) 43 mmHg (35-45); PO2(98.6) 56 mmHg (60-100); SAMPLE BLOOD; SAO2 92.4 % (95.0-100.0); SRATE 12 BPM; TVOL 500 mL; pH(98.6) 7.41 (7.35-7.45)
[2017-02-04 04:37] LABS: MODALITY VENTILATOR
[2017-02-04 05:57] LABS: MANUAL DIFF NEEDED? NO
--- NOTE | 2017-02-04 06:11 | EKG Report ---
Test Performed on : 02/01/2017 11:21:31 AM Test Reason : Chest Pain Blood Pressure : / mmHG Vent. Rate : 067 BPM Atrial Rate : 326 BPM P-R Int : 000 ms QRS Dur : 134 ms QT Int : 406 ms P-R-T Axes : 000 001 120 degrees QTc Int : 429 ms Atrial fibrillation. Nonspecific intraventricular block Possible Inferior infarct , age undetermined Abnormal ECG When compared with ECG of 26-JUL-2016 06:17, Questionable change in QRS duration Unconfirmed Result
[2017-02-04 06:33] LABS: BASO% 0.5 % (0.0-0.8); EOS# 0.08 X1000 (0.0-0.7); EOS% 1.1 % (0.0-10.0); HEMATOCRIT 34.2 % (37.0-47.0); HEMOGLOBIN 10.9 g/dL (12.0-16.0); LYMPH% 17.5 % (20.5-51.1); MCH 32.4 PG (27-31); MCHC 31.9 g/dL (33-37); MCV 101.8 FL (81-99); MONO# 0.36 X1000 (0.11-0.59); MONO% 4.9 % (1.7-9.3); MPV 12.6 FL (7.4-10.4); PLT 134 X1000 (130-400); RBC 3.36 XMIL (4.2-5.4)
[2017-02-04 06:57] LABS: CALCIUM 7.9 mg/dL (8.8-10.2); MAGNESIUM 2.1 mg/dL (1.5-2.7)
--- NOTE | 2017-02-04 07:28 | EKG Report ---
Test Performed on : 02/01/2017 5:14:03 PM Test Reason : No order in OM Latam Blood Pressure : / mmHG Vent. Rate : 067 BPM Atrial Rate : 067 BPM P-R Int : 210 ms QRS Dur : 112 ms QT Int : 384 ms P-R-T Axes : 064 -08 004 degrees QTc Int : 405 ms Sinus rhythm. with 1st degree AV block. Low voltage QRS Possible Inferior infarct (cited on or before 01-FEB-2017) Abnormal ECG When compared with ECG of 01-FEB-2017 17:10, (Unconfirmed) QT has shortened Confirmed by Damian Hawk MD ([id number]) on 02/04/2017 9:16:31 AM
[2017-02-04] MEDS: LASIX IV SCH ×2 (08:39→20:08)
[2017-02-04] MEDS: LOVENOX SUBQ SCH (08:39)
[2017-02-04] MEDS: ASPIRIN PO SCH (08:39)
[2017-02-04] MEDS: PEPCID IV SCH ×2 (08:39→20:07)
[2017-02-04] MEDS: ATIVAN IV PRN ×4 (10:41→22:51)
--- NOTE | 2017-02-04 12:45 | PROGRESS NOTE ---
DATE: 02/04/2017 SUBJECTIVE: This patient is still on mechanical ventilation and sedated. I do not see any blood coming out from the endotracheal tube so we will restart her Lovenox. She is DNR level 2. No CPR or cardioversion for her, just medications and for now on mechanical ventilation. This was discussed with the daughter yesterday. OBJECTIVE: Vital Signs: Temperature 97 degrees, pulse 79, respiratory rate 19, blood pressure 96/63, O2 saturation 97% on mechanical ventilation 50% FiO2. HEENT: Head normocephalic. No trauma. PERRLA. Neck: Supple. No JVD. No masses. Central trachea. Chest: Clear to auscultation. No wheezing. No rales. Abdomen: Soft, nontender, nondistended. No hepatosplenomegaly. Extremities: No edema. No clubbing. No cyanosis. Neurological: The patient is sedated and intubated. LABORATORY: WBC 7.4, hemoglobin 10.9, hematocrit 34.2, platelet 134,000. Sodium 150, potassium 4, chloride 110, bicarbonate 26, BUN 28, creatinine 1, glucose ,calcium 7.9, magnesium 2.1. ASSESSMENT AND PLAN: 1. Cardiopulmonary arrest, at this time the etiology is still unclear. No evidence of pulmonary embolism or myocardial infarction at this point. Cardiology department is following this patient closely as well as pulmonary department. For now, we will continue with mechanical ventilation and sedation. 2. Hypernatremia. We will start this patient today on feeding tubes, we will add water to this or we can give her boluses as schedule, we will monitor the sodium daily. 3. Congestive heart failure. This patient has pleural effusion. Continue with the same treatment. She is getting diuretics as per cardiology. 4. Mild renal insufficiency. This is getting better on a daily basis. She is off pressors. 5. Chronic obstructive pulmonary disease. Continue with breathing treatment, antibiotics and aggressive pulmonary toilet. Pulmonary department is following this lady. 6. Deep vein thrombosis prophylaxis. Continue with Lovenox today. 7. Nutritional status. Today the dietitian has been consulted. We will start this patient on tube feedings, we will add water either with the tube feedings or water boluses. CRITICAL CARE TIME: Forty minutes. cc: Anoop Mancera MD
[2017-02-04] MEDS ORDERED: LASIX IV ONE (13:04)
[2017-02-04] MEDS: VANCOMYCIN 1,700 MG in NS 250 ML IV SCH (20:08)
[2017-02-05] MEDS: ATIVAN IV PRN (00:24)
[2017-02-05] MEDS: ZOSYN 3.375 GM/NS 3.375 GM/50 ML IVPB IV SCH ×4 (03:40→20:36)
[2017-02-05] MEDS: DUONEB (A & A) INH SCH ×6 (03:58→22:39)
[2017-02-05 05:13] LABS: ALLEN TEST YES; BE 8.2 mmoll (-3.0-3.0); BLOOD TYPE ARTERIAL; DRAW SITE R RADIAL; PCO2(98.6) 44 mmHg (35-45); PO2(98.6) 55 mmHg (60-100); SAMPLE BLOOD; SRATE 12 BPM; THB < 3.0 g/dL (11.5-17.4); TVOL 500 mL; pH(98.6) 7.48 (7.35-7.45)
[2017-02-05 05:16] LABS: MODALITY VENTILATOR
--- NOTE | 2017-02-05 06:19 | Diag Imaging Result Doc PS360 ---
EXAM: CHEST-PORTABLE HISTORY: dyspnea TECHNIQUE: Portable COMPARISON: 02/03/2017 FINDINGS: The patient is rotated to the right. No change in the endotracheal tube or in the right sided PICC line. There are increased interstitial markings in the mid and lower lungs. The heart is enlarged. The lungs are poorly expanded. I believe there are small pleural effusions. IMPRESSION: No interval improvement. Electronically signed by Андрей Brunner 02/05/2017 6:16 AM
[2017-02-05 06:51] LABS: BASO% 0.5 % (0.0-0.8); EOS# 0.36 X1000 (0.0-0.7); EOS% 5.9 % (0.0-10.0); HEMATOCRIT 34.1 % (37.0-47.0); HEMOGLOBIN 10.8 g/dL (12.0-16.0); IMM GRAN# 0.07 X1000 (0.0-0.04); IMM GRAN% 1.1 % (0.0-0.5); LYMPH# 0.89 X1000 (1.2-3.4); LYMPH% 14.5 % (20.5-51.1); MANUAL DIFF NEEDED? YES; MCH 32.3 PG (27-31); MCHC 31.7 g/dL (33-37); MCV 102.1 FL (81-99); MONO# 0.36 X1000 (0.11-0.59); MONO% 5.9 % (1.7-9.3); MPV 12.7 FL (7.4-10.4); NEUT% 72.1 % (42.2-75.2); PLT 120 X1000 (130-400); RBC 3.34 XMIL (4.2-5.4)
[2017-02-05 07:27] LABS: BANDS 2 % (0-1); LYMPHS 8 % (21-51); MONO 8 % (1-9)
[2017-02-05 08:11] LABS: MAGNESIUM 2.3 mg/dL (1.5-2.7); POTASSIUM 3.7 mmol/L (3.5-5.1)
[2017-02-05] MEDS: ASPIRIN PO SCH (08:30)
[2017-02-05] MEDS: LOVENOX SUBQ SCH (08:30)
[2017-02-05] MEDS: PEPCID IV SCH ×2 (08:30→20:36)
[2017-02-05] MEDS: LASIX IV SCH ×2 (08:30→20:36)
[2017-02-05 09:36] LABS: ALLEN TEST YES; BE 6.9 mmoll (-3.0-3.0); BLOOD TYPE ARTERIAL; DRAW SITE R RADIAL; METHB 0.4 % (0.0-1.5); MODALITY VENTILATOR; O2(CT) 14.7 mL/dL (15.0-23.0); PCO2(98.6) 43 mmHg (35-45); PO2(98.6) 59 mmHg (60-100); SAMPLE BLOOD; SAO2 94.6 % (95.0-100.0); THB 11.3 g/dL (11.5-17.4); pH(98.6) 7.47 (7.35-7.45)
--- NOTE | 2017-02-05 10:05 | PROGRESS NOTE ---
DATE: 02/05/2017 SODA TESTER: Dr. Harden. CHIEF COMPLAINT: Witnessed cardiopulmonary arrest. HISTORY: This is a 76-year-old female with a history of morbid obesity, COPD, congestive heart failure. She had a witnessed cardiopulmonary arrest while standing in line at the [facility] earlier in the day. Patient intubated and sedated at this time. Could not give a history. Patient's daughter at the bedside states that she was standing in line at the [facility] when she fell on the ground. EMT also standing in line immediately started basic life-support and 911 was called. It took the ambulance around 9 minutes to get to the [facility] at which time defibrillator was attached. The patient was noted to be in ventricular fibrillation. The patient had defibrillation and epinephrine brought her back to spontaneous circulation. She was brought to the emergency room. She had a head CT that did not show any anything acute. CTA of the chest showed right pleural effusion with atelectasis in the right lower lobe. Multiple rib fractures noted. The patient's data showed leukocytosis, elevated D-dimer, metabolic acidosis, lactic acidosis, mild renal insufficiency, elevated glucose. Was currently mildly hypotensive and on pressors. PAST MEDICAL HISTORY: 1. Congestive heart failure, systolic, with known ejection fraction of 40% with an echocardiogram done in July of this year. 2. Paroxysmal atrial fibrillation. 3. Morbid obesity. 4. COPD. 5. History of DVTs and PE. 6. History of nicotine dependence. 7. Depression. PHYSICAL EXAMINATION: General: She was intubated, admitted into the ICU. Today, she is still intubated. Vital Signs: Remains afebrile, temperature 96.9 degrees, pulse 90, respirations 28, blood pressure 114/62. HEENT: Pupils were equal. CVP less than 6 cm. Lungs: Clear in all lung mcmahon. Cardiovascular Examination: Regular rhythm and rate without murmur or S3. Abdomen: Soft. Skin: Is warm and dry. Is and Os: Urine output 5.5 L. LAB: White count 6120, hematocrit 34, platelet count 120,000. Chemistry: Sodium 145, potassium 3.7, chloride 105, BUN 28, creatinine 1.1, blood sugar 129, 111, 122. Chest x-ray today, no interval improvement. Patient rotated to the right, no change in the endotracheal tube or on the right-sided PICC line. Increased interstitial markings in the mid and lower lungs. Heart is enlarged. The lungs are poorly expanded. There were small pleural effusions. ASSESSMENT AND PLAN: 1. Cardiopulmonary arrest. At this time, the etiology is unclear. No evidence of pulmonary embolism or myocardial infarction at this point. Cardiology following. Continue try and extubate. We may be able to explore coronary sufficiency. 2. Respiratory failure, on the ventilator. Continue to wean. 3. Hypernatremia which is improving. Getting intravenous fluids. 4. History of congestive heart failure. Had some pleural effusions. 5. Mild renal insufficiency. Getting better on a daily basis. 6. Chronic obstructive pulmonary disease. Continue present breathing treatments. Pulmonary following. 7. Nutritional status. Patient receiving tube feedings. 8. Orders reviewed. The patient is on Zosyn 3.375 mg IV q.6 hours, Lasix 40 mg IV, got 1 dose yesterday, vancomycin 1700 mg daily, Ativan she gets as needed, Lasix 40 mg IV b.i.d. on a regular basis, Pepcid 20 mg IV b.i.d., aspirin 325 mg a day continue present regimen. cc: Gaetano Peck MD
[2017-02-05] MEDS ORDERED: HEPARIN ONE (12:58)
[2017-02-05] MEDS ORDERED: DITROPAN PO PRN (14:44)
--- NOTE | 2017-02-05 15:14 | PROGRESS NOTE ---
DATE: 02/05/2017 CHIEF COMPLAINT: Unresponsiveness, respiratory failure. SUBJECTIVE: Ms. Egan was extubated just moments ago. She is awake and responsive however she drifts into sleep very easily. She is asking for water. She is on a partial rebreather mask. She has diffuse pain in the chest cage. OBJECTIVE: Vital signs: Her vital signs right now reveal a blood pressure of 114/50, temperature 98.1, pulse 82, and respirations 16. General: The patient is arousable and follows some very simple commands. She drifts into sleep very easily. She is obese. HEENT: Unremarkable. Chest: Tender to palpation. Diminished breath sounds in both bases. Cardiovascular: Heart sounds are irregular at this time. I do not hear any gallop or murmur. Abdomen: The abdomen is quite obese. Extremities: The extremities show trace edema. Neurological: She moves the extremities. She tries to speak slowly. She answers intermittently. LABORATORY DATA: Blood work reveals a white count of 6,120, hemoglobin 10.8, and hematocrit 34.1. Sodium is 145, potassium 3.7, BUN 28, and creatinine 1.1. IMPRESSION: 1. Patient who presented to the hospital after cardiac arrest with documentation according to the first responders of ventricular fibrillation which was treated accordingly per advanced cardiac life support protocol. 2. Extensive pleural effusion and atelectasis of the upper right lung at the time of initial encounter. CT scan of the chest done 02/01/2017. The reason for that is unclear. Her most recent x-ray done today at 5 o'clock does not look a whole lot different. Her EKGs post arrest showed sinus rhythm with first degree atrioventricular block, possible inferolateral myocardial infarction. 3. Morbid obesity. 4. Suspected coronary artery disease. 5. Previous pulmonary embolism. She is on long-term anticoagulation with Eliquis. RECOMMENDATIONS: At this point in time we will continue supportive care. I would suggest obtaining a follow-up CT scan of the chest once the patient is more stable to see what exactly is going on in the chest area. We will consider a left heart catheterization once the patient is very stable, keeping in mind the options for therapy may be very limited. Her electrocardiogram would suggest that she has suffered an inferolateral myocardial infarction although on the blood work there was no significant elevation of troponin. The highest troponin checked on 02/01/2017 was 0.240 and subsequently it dropped to 0.131. Further intervention will depend on her clinical course. cc: Shankar Harden MD MTDD
[2017-02-05 15:26] LABS: CK INDEX 0.9 (0.0-2.5); CK-MB 1.83 ng/mL (0.0-5.0)
[2017-02-05] MEDS ORDERED: SODIUM CHLORIDE 0.9% 10 ML ONE (20:33)
[2017-02-05] MEDS: VANCOMYCIN 1,700 MG in NS 250 ML IV SCH (20:35)
[2017-02-06] MEDS: DUONEB (A & A) INH SCH ×6 (02:34→22:47)
[2017-02-06] MEDS: ZOSYN 3.375 GM/NS 3.375 GM/50 ML IVPB IV SCH ×4 (03:41→20:00)
[2017-02-06 04:01] LABS: ALLEN TEST YES; BE 6.2 mmoll (-3.0-3.0); BLOOD TYPE ARTERIAL; DRAW SITE R RADIAL; METHB 0.7 % (0.0-1.5); O2(CT) 20.9 mL/dL (15.0-23.0); PCO2(98.6) 48 mmHg (35-45); PO2(98.6) 76 mmHg (60-100); SAMPLE BLOOD; SAO2 96.5 % (95.0-100.0); THB 15.8 g/dL (11.5-17.4); pH(98.6) 7.43 (7.35-7.45)
[2017-02-06 04:02] LABS: MODALITY BI PAP
--- NOTE | 2017-02-06 06:54 | EKG Report ---
Test Performed on : 02/06/2017 05:54:06 AM Test Reason : LA/sudden cardiac Blood Pressure : / mmHG Vent. Rate : 076 BPM Atrial Rate : 076 BPM P-R Int : 204 ms QRS Dur : 130 ms QT Int : 424 ms P-R-T Axes : 067 -18 093 degrees QTc Int : 477 ms Sinus rhythm. with fusion complexes Nonspecific intraventricular block Inferior infarct (cited on or before 01-FEB-2017) Abnormal ECG When compared with ECG of 06-FEB-2017 05:53, (Unconfirmed) fusion complexes are now present Confirmed by Damian Hawk MD ([id number]) on 02/06/2017 8:21:19 AM
--- NOTE | 2017-02-06 08:02 | PROGRESS NOTE ---
DATE: 02/06/2017 SUBJECTIVE: Ms. Egan is feeling better and was answering questions. Appears comfortable, awake and alert. Breathing comfortably. OBJECTIVE: Vital signs: Temperature 97.3 degrees, pulse 80, respirations 20, blood pressure 136/76,. HEENT: Pupils are equal, round. CVP less than 6 cm. Lungs: Clear in all lung mcmahon. Cardiovascular: Regular rhythm and rate without murmur or S3. Urine output was 2600 mL. LAB: Reviewed from the 4th. Hematocrit stable at 34. Chemistries from yesterday a creatinine stable 1.1. Had an EKG done this morning per Dr. Harden, and EKG normal sinus rhythm with fusion complexes, nonspecific intraventricular block. Questionable inferior scar. ASSESSMENT AND PLAN: 1. Patient in the hospital after cardiac arrest documented according to first responders with ventricular fibrillation treated accordingly per advanced cardiac protocol. 2. Extensive pleural effusion atelectasis at right lung at time of initial encounter. CT scan was done on 02/01/2013. Most recent chest x-ray done does not look a lot different. Her EKG shows post arrest, showed sinus rhythm, first-degree AV block, possible inferior lateral myocardial infarction. 3. Morbid obesity. 4. Suspect coronary artery disease. 5. Previous pulmonary embolism. She is on long-term anticoagulation with Eliquis. She is making improvement, able to wean her off the ventilator. We will get a followup CT of his chest when able. Consider left heart catheterization down the road. See if we can advance her nutrition. Note: She has some mild renal insufficiency and she has had a history of underlying COPD. cc: Gaetano Peck MD
[2017-02-06] MEDS: LOVENOX SUBQ SCH (08:03)
[2017-02-06] MEDS: ASPIRIN PO SCH (08:03)
[2017-02-06] MEDS: PEPCID IV SCH ×2 (08:03→20:00)
[2017-02-06] MEDS: LASIX IV SCH ×2 (08:03→20:00)
--- NOTE | 2017-02-06 14:35 | Diag Imaging Result Doc PS360 ---
CHEST-PORTABLE - 02/06/2017 INDICATION: dyspnea TECHNIQUE: COMPARISON: 02/05/2017 FINDINGS: The endotracheal tube and nasogastric tube have been removed. Stable right PICC line in good position. Grossly stable moderate to large right pleural effusion and small left pleural effusion. Stable cardiomegaly and pulmonary vascular congestion. No obvious infiltrates. Lung volumes are fairly good. IMPRESSION: Patient extubated, otherwise no change from prior. Electronically signed by Jama Godinez 02/06/2017 2:33 PM
[2017-02-06] MEDS: VANCOMYCIN 1,700 MG in NS 250 ML IV SCH (19:57)
[2017-02-07] MEDS: ZOSYN 3.375 GM/NS 3.375 GM/50 ML IVPB IV SCH ×4 (02:22→20:07)
[2017-02-07] MEDS: DUONEB (A & A) INH SCH ×6 (02:34→22:45)
[2017-02-07 04:02] LABS: ALLEN TEST YES; BE 7.2 mmoll (-3.0-3.0); BLOOD TYPE ARTERIAL; DRAW SITE R RADIAL; O2(CT) 16.8 mL/dL (15.0-23.0); PCO2(98.6) 48 mmHg (35-45); PO2(98.6) 63 mmHg (60-100); SAMPLE BLOOD; THB 13.1 g/dL (11.5-17.4); pH(98.6) 7.44 (7.35-7.45)
[2017-02-07 04:04] LABS: MODALITY CANNULA
[2017-02-07 04:12] LABS: INR 1.03; PROTIME 10.8 Seconds (9.2-11.7)
[2017-02-07 04:14] LABS: HEMATOCRIT 37.9 % (37.0-47.0); HEMOGLOBIN 12.1 g/dL (12.0-16.0); MCH 32.2 PG (27-31); MCHC 31.9 g/dL (33-37); MCV 100.8 FL (81-99); MPV 11.8 FL (7.4-10.4); RBC 3.76 XMIL (4.2-5.4)
[2017-02-07 04:25] LABS: AGAP 17; BUN 26 mg/dL (8-22); CALCIUM 8.8 mg/dL (8.8-10.2); CHLORIDE 104 mmol/L (98-107); COSMO 302; MAGNESIUM 2.2 mg/dL (1.5-2.7); POTASSIUM 3.2 mmol/L (3.5-5.1); SODIUM 149 mmol/L (136-145); TCO2 28 mmol/L (25-35)
[2017-02-07] MEDS ORDERED: POTASSIUM CHLORIDE 20% LIQUID PO ONE (07:40)
[2017-02-07] MEDS: LASIX IV SCH ×2 (08:08→19:35)
[2017-02-07] MEDS: PEPCID IV SCH ×2 (08:08→20:07)
--- NOTE | 2017-02-07 08:14 | Diag Imaging Result Doc PS360 ---
EXAM: CT THORAX W/O CONTRAST INDICATION: S/P cardiac arrest with infiltrates TECHNIQUE: COMPARISON: 02/01/2017 FINDINGS: There is a moderate to large sized right pleural fluid collection and a small left pleural fluid collection. They both appear slightly larger than the previous study. The collection on the right appear somewhat hyperdense, more so than the previous study. This suggests internal blood products or other proteinaceous debris. There is associated atelectasis bilaterally that is much more prominent on the right. There is complete collapse of the right lower lobe and milder right middle lobe atelectasis. There is bilateral groundglass infiltrate throughout both lungs most compatible with edema. There is a right middle lobe calcified granuloma. There is stable marked cardiomegaly. There are calcified right hilar lymph nodes indicating prior granulomatous disease. There is aortic atherosclerotic calcification and the thoracic aorta is somewhat ectatic, stable. There are several anterior rib fractures that are stable. IMPRESSION: 1.Bilateral effusions with associated atelectasis, much larger on the right that have increased slightly during the interval. 2.Increase in density of the right pleural fluid collection suggesting blood products or other proteinaceous debris. 3.Groundglass infiltrates bilaterally suggesting edema. 4.Other incidental/nonacute findings detailed above. Electronically signed by Jabari Pedersen 02/07/2017 8:11 AM
[2017-02-07] MEDS: POTASSIUM CHLORIDE 20 MEQ in D5 1/4 NS 1,000 ML IV SCH ×2 (09:08→23:00)
--- NOTE | 2017-02-07 10:34 | PROGRESS NOTE ---
DATE: 02/07/2017 CHIEF COMPLAINT: Cardiac arrest. Chest discomfort. Shortness of breath. SUBJECTIVE: Mrs. Egan is more alert today. She is having pleuritic type of chest pain. She is not as short of breath as she was before. OBJECTIVE: Vital signs today: Blood pressure is 112/59, temperature 97.2, pulse 74, respirations 16. General: She is awake, alert, oriented. She is not in any distress. HEENT: Unremarkable. Chest: Diminished breath sounds, especially of the right lung. Cardiac: Heart sounds are regular and rhythmic. I do not hear any gallop or murmur. Abdomen: Soft, nontender. Extremities: Show no definite edema. Pulses are slightly diminished. Neurological: She follows commands. She is in a good mood. BLOOD WORK TODAY: Hemoglobin is 12.1, hematocrit 37.9, white count 5750. Sodium 149, potassium 3.2, BUN 26, creatinine 0.9. Blood gases today on nasal cannula 3 L: pO2 is 63, pCO2 is 48, pH is 7.44. IMPRESSION: 1. Patient who suffered cardiac arrest, presumably due to primary ventricular fibrillation. This is likely related to severe underlying coronary heart disease. Her twelve- lead ECG showed sinus rhythm with an inferolateral scar. 2. Evidence of multiple rib fractures probably related to CPR with dense pleural effusions and atelectasis. The patient may have a complex pleural effusion, possibly hemothorax on the right side of the chest. 3. Patient who has morbid obesity. 4. Previous pulmonary embolism on long-term anticoagulation with Eliquis. RECOMMENDATION: At this point in time, the patient has no distress and no ischemic chest pain. Her CT scan reveals extensive pleural effusion on the right side with atelectasis. In my opinion, she will probably not benefit by doing an arteriogram at this time. Given her hypernatremia and hypokalemia, I think we need to correct those electrolyte abnormalities first, consult with Pulmonary and see if they would suggest to do anything about the pleural effusions. I would probably ask them to do incentive spirometry and ask them also to do sequential compression devices for the legs. I will consider obtaining a resting Gated MPI study before pursuing LHC. We will follow her closely. If her pleural effusions improve as well as her atelectasis, we might consider doing an arteriogram just before her discharge from the hospital. She is likely to require a long-term stay in rehabilitation. She is also likely to require a referral to heel stainer for possible implantation of AICD. An arteriogram will certainly need to be done prior to that. Will follow her closely. cc: Shankar Harden MD [facility]
[2017-02-07] MEDS: ALDACTONE PO SCH ×2 (13:25→20:07)
[2017-02-07] MEDS: ASPIRIN PO SCH (13:25)
[2017-02-07] MEDS ORDERED: CALMOSEPTINE OINTMENT TOP PRN (13:49)
[2017-02-07] MEDS: LOVENOX SUBQ SCH (13:55)
--- NOTE | 2017-02-07 18:42 | PROGRESS NOTE ---
DATE: 02/07/2017 SUBJECTIVE: She is feeling much better, awake, alert, extubated, and appropriate. Granddaughter was at the bedside with her. OBJECTIVE: Vital Signs: Temperature 97.4 degrees, pulse 75, respiration is 15, blood pressure 133/65. HEENT: Pupils are equal and round. Lungs: Clear in all lung mcmahon. Cardiovascular: Regular rhythm and rate without murmur or S3. Abdomen: Soft. Skin: Warm and dry. Genitourinary: Good urine output, 1800 mL. LABORATORY DATA: White count 5750, hematocrit 37, platelet count 181,000. Sodium 149, potassium 3.2, chloride 104, BUN 26, creatinine 0.9. ASSESSMENT AND PLAN: 1. Patient suffered cardiac arrest presumably due to primary ventricular fibrillation likely related to severe underlying coronary artery disease. She had a 12 lead EKG, showed sinus rhythm with inferior lateral scar. 2. Evidence of multiple rib fractures probably related to CPR with dense pleural effusion and atelectasis. She may have a complex pleural effusion, possible hemothorax and the right side of the chest. 3. Previous pulmonary embolisms. Long-term anticoagulation on Eliquis. 4. Morbid obesity. At this point, do not want to pursue arteriogram. She seems to be improving. Given her hyponatremia and hyperkalemia, continue to correct those abnormalities. Renal function looks good. Continue to try to get her out of bed. Continue physical therapy. cc: Gaetano Peck MD
[2017-02-07] MEDS: VANCOMYCIN 1,700 MG in NS 250 ML IV SCH (19:36)
[2017-02-07] MEDS: MORPHINE IV PRN (20:14)
[2017-02-08] MEDS: MORPHINE IV PRN ×5 (00:36→23:01)
[2017-02-08] MEDS: DUONEB (A & A) INH SCH ×6 (02:56→23:15)
[2017-02-08] MEDS: ZOSYN 3.375 GM/NS 3.375 GM/50 ML IVPB IV SCH ×4 (03:40→20:01)
[2017-02-08 04:28] LABS: ALLEN TEST YES; BE 5.4 mmoll (-3.0-3.0); BLOOD TYPE ARTERIAL; DRAW SITE R RADIAL; METHB 0.7 % (0.0-1.5); MODALITY CANNULA; O2(CT) 23.2 mL/dL (15.0-23.0); PCO2(98.6) 50 mmHg (35-45); PO2(98.6) 68 mmHg (60-100); SAMPLE BLOOD; SAO2 93.7 % (95.0-100.0); THB 18.2 g/dL (11.5-17.4); pH(98.6) 7.41 (7.35-7.45)
[2017-02-08 05:57] LABS: AGAP 11; BUN 23 mg/dL (8-22); CALCIUM 8.6 mg/dL (8.8-10.2); CHLORIDE 100 mmol/L (98-107); COSMO 284; POTASSIUM 3.3 mmol/L (3.5-5.1); SODIUM 140 mmol/L (136-145); TCO2 29 mmol/L (25-35)
[2017-02-08] MEDS: LASIX IV SCH ×2 (07:49→19:57)
[2017-02-08] MEDS ORDERED: POTASSIUM CHLORIDE 20% LIQUID PO ONE (07:55)
[2017-02-08] MEDS: ASPIRIN PO SCH (09:30)
[2017-02-08] MEDS: QUESTRAN LIGHT PO SCH (09:30)
[2017-02-08] MEDS: ALDACTONE PO SCH ×2 (09:30→20:02)
[2017-02-08] MEDS: PEPCID IV SCH ×2 (09:30→20:02)
--- NOTE | 2017-02-08 10:06 | PROGRESS NOTE ---
DATE: 02/08/2017 CHIEF COMPLAINT: Shortness of breath, sudden , chest cage pain. SUBJECTIVE: Mrs. Egan is doing slightly better than yesterday. She still has pleuritic pain on the right side of the chest cage. It is tender to palpation there. She has radiographically broken ribs. OBJECTIVE: General: She is awake, follows commands. Vital signs: Blood pressure today is 120/61, temperature 98.3, pulse 59, respirations 18. HEENT: Unremarkable. Chest: Diminished breath sounds over the right lung field. Cardiac: Heart sounds are regular and rhythmic, no gallop or murmur. Abdomen: Nontender, soft, no hepatomegaly. Extremities: No edema. Neurological: Moves four extremities, follows commands. BLOOD WORK: Sodium is 140, potassium 3.3, BUN 23, creatinine 0.9. Blood gases on 2 L nasal cannula: pH 7.41, pCO2 of 50, pO2 of 68. IMPRESSION: 1. Patient who presented with sudden cardiac , ventricular fibrillation. 2. Abnormal EKG, suspect inferolateral myocardial infarction. 3. Morbid obesity. 4. History of previous pulmonary embolism. RECOMMENDATION: Today we will obtain a gated myocardial perfusion study at rest and we will continue to support her clinically. We will replace potassium. We have put her on spironolactone 25 twice a day. We will arrange for a heart catheterization probably to be done in the next 3 or 4 days. My plan will be to ideally do it on Saturday or Saturday, depending on her clinical condition. A CT scan of the chest showed that she still has a possible hemothorax on the right side. This needs to either be treated conservatively, or if it interferes with her pulmonary function, it may have to be evacuated. We will discuss with Pulmonary about that. cc: Shankar Harden MD
--- NOTE | 2017-02-08 10:19 | PROGRESS NOTE ---
DATE: 02/08/2017 SUBJECTIVE: She is awake and alert. No sign of distress. Breathing comfortably, eating a little bit of her breakfast. OBJECTIVE: Temperature 98.3 degrees, pulse 59, respirations 18, blood pressure 120/61. Pupils are equal and round. CVP less than 6 cm. Lungs are clear in all lung mcmahon anterolateral. Cardiovascular: Regular rhythm and rate without murmur or S3. Abdomen is soft. Skin is warm and dry. No pedal edema. Urine output was 2.7 liters. LABORATORY DATA: White count 5750. Hematocrit is 37, platelet count 181,000. Chemistries: Sodium 140, potassium 3.3, chloride 100, magnesium from yesterday was 2.2. Serum creatinine 0.9. ASSESSMENT AND PLAN: 1. The patient suffered cardiac arrest presumably due to primary ventricular fibrillation which is likely related to underlying coronary artery disease. Her EKG showed sinus rhythm with inferior lateral scar. Cardiology following. Will likely need a catheterization somewhere down the road. 2. Evidence of multiple rib fractures probably from cardiopulmonary resuscitation and dense pleural effusion. Will follow up with chest x-ray. We did a CT of her chest on 02/07/2017 or yesterday, and she still has bilateral pleural effusions associated with atelectasis, larger on the right side. Increased density. Right pleural fluid collection suggesting blood products or other proteinaceous debris. And, of course, that is where she broke her ribs. Ground-glass infiltrates bilaterally suggesting edema. We will follow radiographically. Work on physical therapy. Work on getting her strength up and we will see if we can move her to the floor soon. Respiratory status appears to have improved quite a bit. cc: Gaetano Peck MD
--- NOTE | 2017-02-08 12:38 | Diag Imaging Result Doc PS360 ---
EXAM: CHEST-2 VIEWS HISTORY: POST RIGHT THORACENTESIS TECHNIQUE: Inspiratory and expiratory, two views COMPARISON: 02/06/2017 FINDINGS: Interval decrease in the size of the right-sided pleural effusion. Cardiomegaly and pulmonary edema remain. No change in the right-sided PICC line. No pneumothorax. Prominent atherosclerosis. IMPRESSION: No postprocedural pneumothorax following the thoracentesis. Electronically signed by Андрей Brunner 02/08/2017 12:36 PM
--- NOTE | 2017-02-08 12:42 | Diag Imaging Result Doc PS360 ---
EXAM: THORACENTESIS W/IMAGE GUIDANCE HISTORY: therapeutic, diagnostic, right. by radiologist TECHNIQUE: Ultrasound-guided thoracentesis COMPARISON: None. FINDINGS: Prior to the procedure and discussed the risk and benefits with the patient. Primary risks include: Bleeding, infection, and pneumothorax which could require chest tube. Questions were answered. The patient then gave consent. The patient was cleaned and draped in the normal fashion. Lidocaine was used as a local anesthetic. Needle and catheter were advanced into the right pleural effusion on the first pass without difficulty. The needle was withdrawn. Catheter was hooked to suction. Approximately 1100 cc of deep red fluid was withdrawn without difficulty. The patient had no complaints during the procedure. The catheter was withdrawn. Fluid was sent to the laboratory for analysis. IMPRESSION: Ultrasound-guided thoracentesis with no immediate postprocedural complications. Electronically signed by Андрей Brunner 02/08/2017 12:40 PM
[2017-02-08] MEDS: LOVENOX SUBQ SCH (13:40)
[2017-02-08] MEDS: POTASSIUM CHLORIDE 20 MEQ in D5 1/4 NS 1,000 ML IV SCH (15:35)
[2017-02-08] MEDS: VANCOMYCIN 1,700 MG in NS 250 ML IV SCH (19:57)
[2017-02-09] MEDS: POTASSIUM CHLORIDE 20 MEQ in D5 1/4 NS 1,000 ML IV SCH (02:34)
[2017-02-09] MEDS: ZOSYN 3.375 GM/NS 3.375 GM/50 ML IVPB IV SCH ×4 (02:35→20:05)
[2017-02-09] MEDS: MORPHINE IV PRN ×4 (03:33→21:20)
[2017-02-09] MEDS: DUONEB (A & A) INH SCH ×6 (03:47→23:13)
[2017-02-09 04:22] LABS: ALLEN TEST YES; BE 5.1 mmoll (-3.0-3.0); BLOOD TYPE ARTERIAL; DRAW SITE R RADIAL; METHB 0.7 % (0.0-1.5); O2(CT) 15.9 mL/dL (15.0-23.0); PCO2(98.6) 44 mmHg (35-45); PO2(98.6) 66 mmHg (60-100); SAMPLE BLOOD; SAO2 94.8 % (95.0-100.0); THB 12.3 g/dL (11.5-17.4); pH(98.6) 7.44 (7.35-7.45)
[2017-02-09 04:35] LABS: MODALITY CANNULA
[2017-02-09 05:42] LABS: AGAP 13; BUN 23 mg/dL (8-22); CALCIUM 8.6 mg/dL (8.8-10.2); CHLORIDE 96 mmol/L (98-107); COSMO 274; POTASSIUM 3.8 mmol/L (3.5-5.1); SODIUM 134 mmol/L (136-145); TCO2 25 mmol/L (25-35)
[2017-02-09] MEDS: ASPIRIN PO SCH (08:35)
[2017-02-09] MEDS: ALDACTONE PO SCH ×2 (08:35→20:06)
[2017-02-09] MEDS: QUESTRAN LIGHT PO SCH (08:35)
[2017-02-09] MEDS: PEPCID IV SCH ×2 (08:35→20:05)
[2017-02-09] MEDS: LASIX IV SCH ×2 (08:35→20:05)
[2017-02-09 09:08] LABS: SPECIMEN PLEURAL FLUID
[2017-02-09] MEDS: NS 1,000 ML IV SCH (10:55)
--- NOTE | 2017-02-09 11:25 | PROGRESS NOTE ---
DATE: 02/09/2017 SUBJECTIVE: Ms. Egan is awake and alert. She says she has some discomfort. She pointed really to subcostal area or epigastric area, but breathing comfortably. OBJECTIVE: Temperature 98.1 degrees, pulse 67, respirations 16, blood pressure 128 O2 saturation 92% Pupils are equal and round. Lungs are clear in all lung mcmahon anterolateral. Cardiovascular: Regular rhythm and rate without murmur or S3. Abdomen is soft. Skin is warm and dry. Urine output 2400 mL. LABORATORY DATA: Lab from today: White count 134, potassium 3.8, chloride 96. BUN 23, creatinine 0.9. ProBNP was 1135. Chest x-ray: No postprocedure pneumothorax following thoracentesis. She had ultrasonic-guided thoracentesis on 02/08/2017, yesterday. There was about 1100 mL deep red fluid withdrawn without difficulty. ASSESSMENT AND PLAN: 1. The patient suffered cardiac arrest presumably due to primary ventricular fibrillation, likely related to underlying coronary artery disease. EKG showed sinus rhythm with inferolateral scar. She seems to be healing. 2. Multiple fractured ribs from cardiopulmonary resuscitation. Patient had an ultrasound-guided thoracentesis yesterday and had 1100 mL off. 3. She is extubated and breathing comfortably. Encouraged increased activity. I think we will try and discontinue her Romero catheter. cc: Gaetano Peck MD
--- NOTE | 2017-02-09 13:41 | PROGRESS NOTE ---
DATE: 02/09/2017 SUBJECTIVE: Patient continues without chest discomfort or dyspnea. OBJECTIVE: Vital Signs: Blood pressure 122/61, heart rate 70 and regular with ECG monitor showing sinus rhythm. Oxygen saturation 94% on nasal cannula oxygen at 2 L. There is no significant jugular venous distention. Chest is clear to auscultation. Cardiac exam reveals a regular rate and rhythm without appreciable murmur or gallop. There is no evidence of peripheral edema. IMPRESSION: 1. Status post cardiac arrest with initial rhythm ventricular fibrillation. 2. Abnormal ECG, consider prior inferolateral myocardial infarction. 3. Morbid obesity. 4. History of previous pulmonary embolism. RECOMMENDATIONS: 1. Continue current regimen and intravenous hydration. 2. Cardiac catheterization/coronary angiography planned tentatively for Saturday. cc: Enoc Akbar MD
[2017-02-09] MEDS: LOVENOX SUBQ SCH (14:47)
--- NOTE | 2017-02-09 20:17 | Diag Imaging Result Document ---
PROCEDURE NAME: MYOCARDIAL PERFU SCAN, REST - 02/08/2017 INDICATION: A 76-year-old female who suffered a sudden cardiac , ventricular fibrillation. She had an abnormal EKG suggesting inferolateral scar. DESCRIPTION: The patient came into the Nuclear Lab, received a rest injection of technetium 99 sestamibi 43.5 millicuries. Multiple tomographic views of the cardiac structure were obtained at rest. SUMMARY OF MYOCARDIAL PERFUSION PORTION OF STUDY: Resting tomographic views of the left ventricle showed a severe and extensive lateral and inferior defect. The defect appears to be transmural. The polar plot reveals the same. There is an extensive defect involving the inferior and the entire lateral wall of the left ventricle consistent with infarction in the territory of the dominant circumflex. The gated SPECT using the Trey Tool protocol reveals enlargement of the left ventricle with ejection fraction of 39% and impairment of the lateral inferior wall of the left ventricle. Using the Myometrix protocol the ejection fraction is calculated at 28% with akinesis of the inferolateral wall. The lung-heart ratio is elevated and is in this particular case estimated at 0.52 which is consistent with congestive heart failure (diastolic) or elevated left-sided filling pressure. IMPRESSION: In summary, this resting gated myocardial perfusion study shows. 1. Scintigraphic suggestion of extensive inferolateral scar. Hibernating myocardium may be present within the defect. 2. Significantly impaired left ventricular systolic function. Ejection fraction is estimated to be in the neighborhood of 30% with inferolateral akinesis. Clinical correlation recommended. Consider pursuing viability study with thallium prior to advising coronary angiogram. cc: Shankar Harden MD MTDD
[2017-02-09] MEDS: VANCOMYCIN 1,700 MG in NS 250 ML IV SCH (21:00)
[2017-02-10] MEDS: MORPHINE IV PRN ×5 (01:08→21:18)
[2017-02-10] MEDS: ZOSYN 3.375 GM/NS 3.375 GM/50 ML IVPB IV SCH ×4 (02:51→21:18)
[2017-02-10] MEDS: DUONEB (A & A) INH SCH ×6 (03:25→23:08)
[2017-02-10 04:25] LABS: ALLEN TEST YES; BE 4.9 mmoll (-3.0-3.0); BLOOD TYPE ARTERIAL; DRAW SITE R RADIAL; METHB 1.3 % (0.0-1.5); O2(CT) 15.8 mL/dL (15.0-23.0); PCO2(98.6) 41 mmHg (35-45); PO2(98.6) 81 mmHg (60-100); SAMPLE BLOOD; SAO2 97.2 % (95.0-100.0); THB 11.9 g/dL (11.5-17.4); pH(98.6) 7.46 (7.35-7.45)
[2017-02-10 04:26] LABS: MODALITY CANNULA
[2017-02-10 06:28] LABS: AGAP 11; BUN 19 mg/dL (8-22); CALCIUM 8.2 mg/dL (8.8-10.2); CHLORIDE 97 mmol/L (98-107); COSMO 273; POTASSIUM 3.8 mmol/L (3.5-5.1); SODIUM 135 mmol/L (136-145); TCO2 27 mmol/L (25-35)
[2017-02-10] MEDS: QUESTRAN LIGHT PO SCH (08:14)
[2017-02-10] MEDS: ASPIRIN PO SCH (08:15)
[2017-02-10] MEDS: PEPCID IV SCH ×2 (08:15→21:18)
[2017-02-10] MEDS: ALDACTONE PO SCH ×2 (08:15→21:17)
[2017-02-10] MEDS: LASIX IV SCH ×2 (08:15→21:18)
[2017-02-10] MEDS: NS 1,000 ML IV SCH (08:15)
--- NOTE | 2017-02-10 11:52 | PROGRESS NOTE ---
DATE: 02/10/2017 SUBJECTIVE: The patient continues without chest discomfort or dyspnea. OBJECTIVE: Vital signs: Blood pressure 106/45, heart rate 70 and regular with ECG monitor showing sinus rhythm. There is no significant jugular distention. Chest: Clear to auscultation. Cardiac: Reveals a regular rate and rhythm without appreciable murmur or gallop. There is no evidence of peripheral edema. LABORATORY DATA: Includes a BUN of 19, creatinine 0.9. IMPRESSION: 1. Status post cardiac arrest with initial rhythm reported ventricular fibrillation. 2. Abnormal noninvasive cardiac studies, suggesting posterior lateral infarction. 3. Obesity. 4. History of previous pulmonary embolism. RECOMMENDATIONS: 1. Continue current cardiovascular regimen and intravenous hydration. 2. Cardiac catheterization/coronary angiography. Plan tentatively for tomorrow. 3. Patient appears reasonably stable to transfer to step-down unit. cc: Enoc Akbar MD
--- NOTE | 2017-02-10 12:41 | PROGRESS NOTE ---
DATE: 02/10/2017 SUBJECTIVE: A 76-year-old, she is feeling better. No chest pain. Breathing better. Feels stronger. OBJECTIVE: Vital Signs: Temperature 96.7, pulse 69, respirations 15, blood pressure 132/65. HEENT: Pupils are equal, round. Lungs: Clear in all lung mcmahon. Cardiovascular: Regular rhythm and rate without murmur or S3. Abdomen: Soft. Skin: Warm and dry. Urine output is 2400 mL. LABORATORY DATA: Reviewed from the 6th. Hematocrit stable at 37. Electrolytes unremarkable. ASSESSMENT AND PLAN: 1. Status post cardiac arrest. Suspect initial rhythm ventricular fibrillation. Suspect underlying coronary artery disease. 2. Abnormal ECG .consider prior inferior lateral myocardial infarction. 3. Morbid obesity. 4. Previous history of pulmonary embolism. PLAN: She is getting better. Nutrition improved. P.o. intake improved. I think we can move her to the [facility]. I think the plan is to try and pursue arteriogram next week. Review of lab and orders and I do not see any changes. cc: Gaetano Peck MD
[2017-02-10] MEDS: LOVENOX SUBQ SCH (15:58)
[2017-02-10] MEDS: VANCOMYCIN 1,700 MG in NS 250 ML IV SCH (21:26)
[2017-02-11 00:30] LABS: URINE CULTURE NEEDED? NO; URINE SOURCE CATH
[2017-02-11 00:33] LABS: BILIRUBIN URINE NEGATIVE (NEGATIVE); BLOOD URINE NEGATIVE (NEGATIVE); COLOR STRAW; GLUCOSE URINE NEGATIVE (NEGATIVE); LEUKOCYTES URINE NEGATIVE (NEGATIVE); NITRITE URINE NEGATIVE (NEGATIVE); PROTEIN URINE NEGATIVE (NEGATIVE); SP GRAVITY URINE 1.007; TURBIDITY URINE CLEAR (CLEAR); UROBILINOGEN URINE NORMAL (NORMAL)
[2017-02-11 00:34] LABS: URINE MICRO REVIEW NEEDED? YES
[2017-02-11 00:35] LABS: UR EPITHELIAL CELLS <10 /HPF (<10); URINE BACTERIA NEGATIVE /HPF; URINE RBC <10 /HPF (<10); URINE WBC <10 /HPF (<10)
[2017-02-11] MEDS: MORPHINE IV PRN ×3 (00:48→20:46)
[2017-02-11 00:49] LABS: URINE CASTS NONE SEEN; URINE CRYSTALS NONE SEEN
[2017-02-11] MEDS: ZOSYN 3.375 GM/NS 3.375 GM/50 ML IVPB IV SCH (02:55)
[2017-02-11] MEDS: DUONEB (A & A) INH SCH ×5 (03:30→19:41)
[2017-02-11 04:20] LABS: ALLEN TEST YES; BE 6.4 mmoll (-3.0-3.0); BLOOD TYPE ARTERIAL; DRAW SITE R RADIAL; METHB 0.5 % (0.0-1.5); O2(CT) 15.6 mL/dL (15.0-23.0); PCO2(98.6) 34 mmHg (35-45); PO2(98.6) 126 mmHg (60-100); SAMPLE BLOOD; SAO2 100.3 % (95.0-100.0); THB 11.3 g/dL (11.5-17.4); pH(98.6) 7.54 (7.35-7.45)
[2017-02-11 04:21] LABS: MODALITY CANNULA
[2017-02-11] MEDS: NS 1,000 ML IV SCH (05:39)
[2017-02-11 06:37] LABS: AGAP 12; BUN 16 mg/dL (8-22); CALCIUM 8.4 mg/dL (8.8-10.2); CHLORIDE 100 mmol/L (98-107); COSMO 279; POTASSIUM 3.7 mmol/L (3.5-5.1); SODIUM 139 mmol/L (136-145); TCO2 27 mmol/L (25-35)
--- NOTE | 2017-02-11 08:53 | PROGRESS NOTE ---
DATE: 02/11/2017 SUBJECTIVE: Ms. Egan is feeling better. Getting a little stronger. I think the plan is to do a left heart catheterization. Appears she has had extensive lateral and inferior wall damage and probably had an AZ. She had a cardiac arrest. We suspect ventricular fib in the face of myocardial infarction. PHYSICAL EXAMINATION: Vital Signs: Temperature 98.2 degrees, pulse 60, respirations 16, blood pressure 94/53. CVP less than 6 cm. Lungs: Clear in all lung mcmahon. Cardiovascular: Regular rate without murmur or S3. Abdomen: Soft. Skin: Warm and dry Urine output 3.5 L. LABORATORY DATA: Reviewed from : Sodium 139, potassium 3.7, chloride 100, BUN 16, creatinine 0.9, calcium 8.4. ASSESSMENT AND PLAN: 1. Status post cardiac arrest. I suspect the initial rhythm was ventricular fibrillation. Extensive lateral and inferior wall damage. Plan for left heart catheterization tomorrow. 2. Morbid obesity. 3. Previous history of pulmonary embolism. 4. General weakness and deconditioning. Continue physical therapy. Probably needs to go to rehab from here. REVIEW OF ORDERS: She is on spironolactone 25 mg b.i.d. I think we can stop her Zosyn. She is getting normal saline 45 mL an hour. Pepcid 20 mg IV b.i.d., and I think we can stop that as well. Lasix 20 mg IV q.12 hours. Last chest x-ray was on the . We will repeat again this morning. She has had several ribs were fractured a lot of pain on the right side from her CPR. No postprocedural pneumothorax. She did have a thoracentesis so we will repeat a chest x-ray. Note the lab from the , today. cc: Gaetano Peck MD
--- NOTE | 2017-02-11 08:57 | Diag Imaging Result Doc PS360 ---
EXAM: CHEST-PORTABLE HISTORY: rib fxs, pulmonary edema TECHNIQUE: AP portable at 0845 COMMENT: There is more extensive opacification of the right lower lobe compared to 02/08/2017 although the right hemidiaphragm is now visible, previously it was not. Otherwise has been no significant change since the previous study. IMPRESSION: Cardiomegaly and pulmonary edema. Electronically signed by Sai Lawrence 02/11/2017 8:55 AM
[2017-02-11] MEDS: LASIX IV SCH (09:58)
[2017-02-11] MEDS: ALDACTONE PO SCH (09:58)
[2017-02-11] MEDS: ASPIRIN PO SCH (09:58)
[2017-02-11] MEDS: QUESTRAN LIGHT PO SCH (09:58)
[2017-02-11] MEDS: COZAAR PO SCH (12:11)
[2017-02-11] MEDS: LOVENOX SUBQ SCH (14:05)
[2017-02-11] MEDS: TOPROL XL PO SCH (20:46)
[2017-02-11] MEDS ORDERED: MORPHINE IV ONE (22:26)
[2017-02-12] MEDS: DUONEB (A & A) INH SCH ×5 (01:45→15:32)
[2017-02-12] MEDS: MORPHINE IV PRN ×4 (04:57→16:20)
[2017-02-12 06:09] LABS: HEMATOCRIT 34.9 % (37.0-47.0); HEMOGLOBIN 11.4 g/dL (12.0-16.0); MCH 32.6 PG (27-31); MCHC 32.7 g/dL (33-37); MCV 99.7 FL (81-99); MPV 11.5 FL (7.4-10.4); RBC 3.5 XMIL (4.2-5.4)
[2017-02-12 06:16] LABS: INR 1.03; PROTIME 10.8 Seconds (9.2-11.7)
[2017-02-12 06:33] LABS: AGAP 12; ALBUMIN 3.1 g/dL (3.5-5.0); ALKALINE PHOSPHATASE 89 U/L (32-104); BUN 22 mg/dL (8-22); CALCIUM 8.9 mg/dL (8.8-10.2); CHLORIDE 98 mmol/L (98-107); COSMO 275; GOT 16 U/L (10-30); GPT 17 U/L (10-36); POTASSIUM 4.6 mmol/L (3.5-5.1); SODIUM 136 mmol/L (136-145); TCO2 26 mmol/L (25-35); TOTAL BILIRUBIN 0.45 mg/dL (0.20-1.00)
[2017-02-12] MEDS ORDERED: LASIX PO SCH (09:00)
[2017-02-12] MEDS ORDERED: ALDACTONE PO SCH (09:00)
[2017-02-12] MEDS: ASPIRIN PO SCH (09:15)
[2017-02-12] MEDS: TOPROL XL PO SCH (09:15)
[2017-02-12] MEDS: COZAAR PO SCH (09:15)
[2017-02-12] MEDS: QUESTRAN LIGHT PO SCH (09:27)
[2017-02-12 09:38] LABS: URINE SOURCE CATH
[2017-02-12] MEDS ORDERED: HEPARIN 1000 UNITS/NS 2,000 UNIT/1,000 ML IV.SOLN ONE (09:38)
[2017-02-12 09:41] LABS: BILIRUBIN URINE NEGATIVE (NEGATIVE); BLOOD URINE NEGATIVE (NEGATIVE); COLOR YELLOW; GLUCOSE URINE NEGATIVE (NEGATIVE); LEUKOCYTES URINE LARGE (NEGATIVE); NITRITE URINE NEGATIVE (NEGATIVE); PH URINE 5.5; PROTEIN URINE TRACE mg/dL (NEGATIVE); SP GRAVITY URINE 1.019; TURBIDITY URINE CLEAR (CLEAR); UROBILINOGEN URINE NORMAL (NORMAL)
[2017-02-12 09:43] LABS: URINE MICRO REVIEW NEEDED? YES
[2017-02-12] MEDS ORDERED: NS 1,000 ML ONE (10:02)
[2017-02-12] MEDS ORDERED: ANESTHESIA PB SET 88 IN 5742 ONE (10:02)
[2017-02-12] MEDS ORDERED: DEMEROL ONE ×2 (10:02→10:44)
[2017-02-12] MEDS ORDERED: VERSED ONE ×2 (10:02→11:07)
[2017-02-12] MEDS ORDERED: CLAVE TWINSITE 32 IN 11959 ONE (10:03)
[2017-02-12 10:09] LABS: UR EPITHELIAL CELLS <10 /HPF (<10); URINE BACTERIA NEGATIVE /HPF; URINE CULTURE NEEDED? YES; URINE RBC <10 /HPF (<10); URINE WBC TNTC /HPF (<10)
--- NOTE | 2017-02-12 11:41 | PROGRESS NOTE ---
DATE: 02/12/2017 SUBJECTIVE: She states that she is feeling pretty good. She did have some chest pressure yesterday evening, none this morning. Remains afebrile. She feels like she is a little stronger. PHYSICAL EXAMINATION: Vital Signs: Temperature 98.2 degrees, pulse 58, respirations 18, blood pressure 126/56. HEENT: Pupils are equal and round. Lungs: Are clear in all lung mcmahon. Cardiovascular Examination: Regular rhythm and rate without murmur or S3. Abdomen: Soft, nontender. Skin: Is warm and dry. Is and Os: Urine output 900 mL. LAB: White count 5460, hematocrit 34, platelet count 251,000. Chemistry: Sodium 136, potassium 4.6, chloride 98, BUN 22, creatinine 0.8, calcium was 8.9, albumin 3.1. Chest x-ray from yesterday, cardiomegaly and pulmonary edema. More extensive opacification of the right lower lobe compared to 02/08/2017, although right hemidiaphragm is not visible. ASSESSMENT AND PLAN: 1. Cardiac arrest. Suspect atrial fibrillation and suspect underlying coronary artery disease. She is planned for a left heart catheterization today. 2. Morbid obesity. 3. Previous history of pulmonary embolism. 4. She had chest compressions and some fractured ribs on the right side. 5. General weakness and deconditioning. The daughter has requested that we check a urinalysis. She still has some confusion. She is oriented x3 at the present time, although had to be reminded of the year. Urinalysis checked on 02/10/2017 which was unremarkable. cc: Gaetano Peck MD
[2017-02-12] MEDS ORDERED: MAALOX PLUS LIQUID PO PRN (11:55)
[2017-02-12] MEDS ORDERED: NS 1,000 ML IV SCH (12:00)
--- NOTE | 2017-02-12 12:31 | CARDIAC CATH REPORT ---
DATE: 02/12/2017 PROCEDURE: 1. Left heart catheterization. 2. Selective coronary angiogram. 3. Aortic root injection. 4. Opacification of the right femoral artery. HISTORY: A 76-year-old female presented to the hospital with sudden cardiac , ventricular fibrillation on presentation. She had positive troponins indicating non-ST myocardial infarction. The patient initially was in respiratory failure. She was stabilized. She had a hemothorax on the right chest that was evacuated. After stabilization, we performed a resting gated myocardial perfusion study that showed extensive deficit involving the inferior and lateral wall. We recommended a left heart catheterization prior to discharge because of her high risk for recurrent events. Benefits, risks, complications were explained to her in detail. She understood and requested to proceed. DESCRIPTION OF PROCEDURE: The patient came into the cardiac color laboratory technician in the fasting state. The right groin was prepped and draped in sterile fashion, anesthetized with lidocaine 1%. The patient received several doses of Demerol 25 mg as well as Versed in small amounts to achieve adequate sedation. All this will be detailed in the medication administration sheet. The patient's groin was infiltrated with lidocaine 1%. A 6-Liberian sheath was inserted into the right femoral artery by following the modified Seldinger technique. Using 6-Liberian left Patricia 4 and right Patricia 4, the left and right coronary artery were sequentially opacified in multiple projections. I was not able to cross the aortic valve with a standard J-tip guidewire, and I had to switch over to a straight-tip guidewire. Aortic Root was opacified in 2 views to better assess aortic valve. With the straight tip guidewire and the 6-Liberian B2 multipurpose catheter, the aortic valve was negotiated. The left ventricular pressure was determined and then left ventriculogram was not performed because of concerns about significant fluid overload on her. The multipurpose catheter was removed. The sheath was flushed. The right femoral artery opacified. Due to extensive atherosclerotic changes and the fact that this puncture was made at the bifurcation of the proximal femoral artery, it was recommended to just remove the sheath by hand, and hemostasis was accomplished by hand compression. The patient tolerated the procedure well without complications. SUMMARY OF THE HEMODYNAMIC FINDINGS: Central aortic pressure is 96/58, mean of 68. Left ventricular pressure 92/21, post procedure is 109/21. Final central aortic pressure 109/85. SUMMARY OF THE ANGIOGRAPHIC FINDINGS: 1. Aortic root: The aortic root was opacified in TORRES and KITTITIAN projection because of difficulty crossing the aortic valve. The root is not dilated. There is some calcification that is mild. The coronary arteries originate in a normal fashion from the aortic root. 2. Left main coronary artery: The left main coronary artery is anatomically normal, divides into LAD and circumflex. 2. Left anterior descending coronary artery: This vessel gives rise to 2 diagonal branches. The LAD proper is free of any obstruction and it reaches the apex of the left ventricle. 3. Circumflex coronary artery: The circumflex coronary artery is completely occluded in his proximal to middle third. At that point, it appears as if an obtuse marginal branch fills barely through ipsicollaterals. The terminal A-V branch is also visualized. It is very small. The occlusion is complete of the circumflex at that level. 4. Right coronary artery: The right coronary artery is dominant, is a large vessel. There is a proximal 95% to 99% stenosis. The vessel is calcified with diffuse irregularly. In the middle segment of the vessel, there is a 70% stenosis followed by an additional 50% stenosis. Diffuse disease is noted. Distally, the right coronary artery gives rise to a posterior descending branch and a posterolateral ranch. OPACIFICATION OF THE RIGHT FEMORAL ARTERY: The right femoral artery shows diffuse atherosclerotic changes. Angio-Seal device could not be deployed because of those changes and also because a puncture was made at the bifurcation of the proximal femoral vessel. IMPRESSION: In summary, this study shows: 1. Normal initial LVEDP. 2. Severe 2-vessel coronary artery disease with total occlusion of the circumflex in the proximal to middle third and 95% to 99% proximal right coronary artery stenosis. Diffuse disease noted in that vessel. 3. Unremarkable aortic root. 4. Diffuse atherosclerotic changes in the right femoral artery. RECOMMENDATION: At this point in time, I would suggest to obtain a thallium redistribution study to check for viability of the inferior wall prior to recommending intervention to the right coronary artery. The patient tolerated this procedure well. She will be followed by us in the hospital. cc: Shankar Harden MD [facility]
--- NOTE | 2017-02-12 12:46 | EKG Report ---
Test Performed on : 02/12/2017 12:17:40 PM Test Reason : POST CATH Blood Pressure : / mmHG Vent. Rate : 056 BPM Atrial Rate : 056 BPM P-R Int : 214 ms QRS Dur : 092 ms QT Int : 428 ms P-R-T Axes : 050 -13 063 degrees QTc Int : 413 ms Sinus bradycardia. with 1st degree AV block. Low voltage QRS Possible Lateral infarct , age undetermined Inferior infarct (cited on or before 01-FEB-2017) Abnormal ECG When compared with ECG of 06-FEB-2017 05:54, Significant changes have occurred Confirmed by Kenn ACEVEDO, MNey Moya ([id number]) on 02/12/2017 2:08:50 PM
[2017-02-12] MEDS: LOVENOX SUBQ SCH (14:09)
[2017-02-12 15:52] VITALS: BP 98/52
--- NOTE | 2017-02-12 17:04 | DISCHARGE SUMMARY ---
ADMISSION DATE: 02/01/2017 DISCHARGE DATE: HISTORY OF PRESENT ILLNESS: This is a 76-year-old, white female who presented on 02/01/2017. She had a witnessed cardiopulmonary arrest. She is followed by Dr. Harden. History of morbid obesity, COPD, congestive heart failure. Had a cardiopulmonary arrest standing in line at the [facility] earlier on 02/01/2017. The patient was intubated and sedated at the scene. The daughter at the bedside said she was standing in line at the [facility] and fell to the ground. EMT was standing in line and immediately started basic life-support and 911 was called. Took EMS around 9 minutes to get there. Defibrillator was attached to the patient and was noted to be in ventricular fibrillation and had defibrillation and epinephrine brought to return to spontaneous circulation and rhythm. She was brought to the emergency room and admitted. Had a head CT which did not show anything. CTA of the chest showed some right pleural effusion. She had right lower lobe, multiple rib fractures probably from chest compressions. Brought in put into the unit. She was intubated. PAST MEDICAL HISTORY: What was known about her: 1. She has congestive heart failure. Systolic ejection fraction 40% on echocardiogram done in July of this year. 2. Paroxysmal atrial fibrillation. 3. Morbid obesity. 4. COPD. 5. History of DVTs and PE. 6. Remote history of nicotine dependence. 7. Depression. SURGICAL HISTORY: She has had bilateral knee arthroplasties and bilateral femoral open reduction and internal fixation. She has had a hysterectomy, appendectomy and tonsillectomy. HOSPITAL COURSE: Patient was diuresed. Pressures were watched carefully and able to extubate. Neurologically, she was intact and was alert with no focal deficits. On her EKG post arrest shows sinus rhythm, first-degree AV block, possible inferior lateral myocardial infarction. She continued to improve. CT of the chest done on 02/07/2017, bilateral effusions with associated atelectasis, much larger on the right then increased slightly during the interval. Increased density of the right pleural fluid collection suggesting blood products and proteinaceous debris. Ground-glass infiltrates suggesting edema. Patient underwent thoracentesis under ultrasound on 02/08 and fluid nonspecific. Patient continued to show some improvement and so was able to move her from the unit to [facility]. A heart catheterization was performed and found left main and circumflex and felt she needed to go to [place]. So plan is to transfer her to [place]. Will continue her current medications. She is on DuoNeb, Aspirin 325 mg a day. Lasix 40 mg a day, Cozaar 50 mg a day. Spironolactone 25 mg daily. She is taking Ditropan 10 mg p.o. q.6 hours p.r.n., and she is on Lovenox 40 mg subcutaneously q.24 hours. cc: Gaetano Peck MD
== END 2017-02-12 17:22 | disposition short-term general hospital (02) ==
LOC: ED 11:14 → ICU 15:10 → SUATTDRO 15:10 → 3S 02-11 14:32
PROVIDERS: ATTEND Emergency Medicine

== ENCOUNTER 2018-09-23 11:53 | Inpatient (IN) ==
--- NOTE | 2018-09-23 13:12 | Diag Imaging Result Doc PS360 ---
CT HEAD W/O CONTRAST - 09/23/2018 INDICATION: confusion COMPARISON: 02/01/2017 FINDINGS: There is stable mild to moderate periventricular white matter chronic microvascular disease. Stable old lacunae at the left basal ganglia and anterior limb of the left internal capsule. No intracranial mass or hemorrhage. There is stable fluid opacification of the mastoids bilaterally. The middle ears are clear. The paranasal sinuses are clear. The skull is intact. IMPRESSION: No acute disease or change from prior. This exam was performed using automated exposure control, adjustment of mA or kV according to patient size, and/or use of iterative reconstruction technique Electronically signed by Jama Godinez 09/23/2018 1:10 PM
--- NOTE | 2018-09-23 13:24 | Diag Imaging Result Doc PS360 ---
CHEST-1 VIEW - 09/23/2018 INDICATION: confusion COMPARISON: 02/11/2017 FINDINGS: There is significant cardiomegaly and pulmonary vascular congestion. There may be some infiltrate in the right lung base. No pneumothorax or significant pleural effusion. No sign of significant pulmonary edema. IMPRESSION: 1. Cardiomegaly and pulmonary vascular congestion. 2. Indeterminate infiltrate in the right lung base. Correlate clinically. Electronically signed by Jama Godinez 09/23/2018 1:21 PM
[2018-09-23 14:12] LABS: BASO# 0.01 X1000 (0.0-0.2); BASO% 0.1 % (0.0-0.8); EOS# 0.02 X1000 (0.0-0.7); EOS% 0.2 % (0.0-10.0); HEMATOCRIT 38.9 % (37.0-47.0); HEMOGLOBIN 12.8 g/dL (12.0-16.0); IMM GRAN# 0.02 X1000 (0.0-0.04); IMM GRAN% 0.2 % (0.0-0.5); LYMPH# 0.92 X1000 (1.2-3.4); LYMPH% 10.3 % (20.5-51.1); MCH 31.4 PG (27-31); MCHC 32.9 g/dL (33-37); MCV 95.6 FL (81-99); MONO# 0.33 X1000 (0.11-0.59); MONO% 3.7 % (1.7-9.3); MPV 12.2 FL (7.4-10.4); NEUT# 7.66 X1000 (1.4-6.5); NEUT% 85.5 % (42.2-75.2); PLT 155 X1000 (130-400); RBC 4.07 XMIL (4.2-5.4); RDW 13.4 % (11.5-14.5); WBC 8.96 X1000 (4.8-10.8)
[2018-09-23 14:24] LABS: AGAP 14; ALBUMIN 2.9 g/dL (3.5-5.0); ALKALINE PHOSPHATASE 90 U/L (32-104); BUN 21 mg/dL (8-22); CALCIUM 8.7 mg/dL (8.8-10.2); CHLORIDE 102 mmol/L (98-107); COSMO 281; CREATININE 0.9 mg/dL (0.5-0.9); ESTIMATED GFR > 60; GLUCOSE 105 mg/dL (70-104); GOT 27 U/L (10-30); GPT 13 U/L (10-36); POTASSIUM 3.3 mmol/L (3.5-5.1); SODIUM 139 mmol/L (136-145); TCO2 24 mmol/L (25-35); TOTAL PROTEIN 6.4 g/dL (6.3-8.3)
[2018-09-23 14:25] LABS: INR 1.3; PROTIME 16.8 Seconds (11.0-16.0)
[2018-09-23 14:26] LABS: PTT 39.4 Seconds (22.3-41.8)
[2018-09-23 14:30] LABS: CK PROFILE 292 U/L (24-173)
[2018-09-23 14:46] LABS: CK INDEX 1.3 (0.0-2.5); CK-MB 3.68 ng/mL (0.0-5.0)
--- NOTE | 2018-09-23 15:28 | PROVIDER DOCUMENTATION ---
This chart was entered by Dee Greene Scribe, acting as scribe for Althea Rodrigues MD. HPI-General Adult - General Chief Complaint: Weakness Stated Complaint: Weakness/AMS Time Seen by Provider: 09/23/18 12:00 Source: patient, family, EMS Allergies/Adverse Reactions: Patient Allergies Allergy/AdvReac Type Severity Reaction Status Date / Time vancomycin Allergy Intermediate RASH Verified 09/23/18 12:09 morphine AdvReac Unknown Uncoded 09/23/18 12:09 Home Medications: Home Medication List Medication Instructions Recorded Confirmed Last Taken Type Albuterol 2.5MG/Ipratrop 0.5MG 3 ml INH Q2H PRN PRN #0 neb 02/12/17 09/23/18 Rx [Duoneb (A & A)] Cholestyramine/Aspartame [Questran 4 gm PO DAILY packet 02/12/17 Unknown Rx Light] Menthol/Zinc Oxide Ointment 1 gm TOP PRN PRN #0 tube 02/12/17 09/23/18 Unknown Rx [Calmoseptine Ointment] Ondansetron [Zofran] 4 mg IV Q4H PRN PRN #0 vial 02/12/17 09/23/18 Unknown Rx Acetaminophen [Acetaminophen Extra 2 tab PO Q6HR PRN 09/23/18 09/23/18 Unknown History Strength] Apixaban [Eliquis] 1 tab PO BID 09/23/18 09/23/18 09/22/18 History Atorvastatin Calcium [Lipitor] 1 tab PO QHS 09/23/18 09/23/18 09/22/18 History Cholecalciferol (Vitamin D3) 1 cap PO DAILY 09/23/18 09/23/18 09/22/18 History [Vitamin D3] Clopidogrel [Plavix] 1 tab PO DAILY 09/23/18 09/23/18 09/22/18 History Escitalopram [Lexapro] 1 tab PO DAILY 09/23/18 09/23/18 09/22/18 History Fluticasone/Salmet 500/50 INH 1 inh INH BID 09/23/18 09/23/18 09/22/18 History [Advair 500/50 Diskus] Furosemide [Lasix] 40 mg PO BID 09/23/18 09/23/18 09/22/18 History Losartan [Cozaar] 25 mg PO DAILY 09/23/18 09/23/18 09/22/18 History Metoprolol Succinate E.r. [Toprol 1 tab PO DAILY 09/23/18 09/23/18 09/22/18 History Xl] Potassium Chloride [Klor-Con M20] 1 tab PO BID 09/23/18 09/23/18 09/22/18 History Spironolactone [Aldactone] 12.5 mg PO DAILY 09/23/18 09/23/18 09/22/18 History - History of Present Illness -Gen Adult Nature of Presenting Problems: 77 yowf presentss to the ed via ems with [facility] sts weakness and sob. pt has family speaking over her. family sts "we called dr shipman ([employer])and was told to bring her here to get stabilized then transfer to him at " pt is in afib and when dr rodrigues spoke with dr shipman he sts he has not spoken with family at all. pt c/o weakness and sob with exertion. [facility] pt has not ate in 5 days Location of Pain/Injury: reports: generalized (weakness) Quality of Pain: reports: none Severity: reports: moderate Onset/Duration: reports: 1 week ago Timing: reports: intermittent Context/Activities at Onset: reports: light activity Modifying Factors: improves with: nothing Associated Symptoms: reports: loss of appetite, malaise, shortness of breath, weakness, trouble walking. denies: back/neck pain, chest pain, cough, fever/ chills, headaches, syncope, vomiting Similar Symptoms Previously?: Yes Recently seen or treated by another doctor?: No Review of Systems - Adult - REVIEW OF SYSTEMS - ADULT ROS:: ROS per family (family tries to speak over pt) Constitutional: reports: fatique. denies: chills, fever Eyes: reports: no symptoms reported Ears, Nose, Mouth & Throat: reports: no symptoms reported Cardiovascular: denies: chest pain, palpitations, syncope Respiratory: reports: dyspnea on exertion, shortness of breath. denies: cough, wheezing Gastrointestinal: reports: see HPI, poor appetite. denies: nausea (both), vomiting Genitourinary: reports: see HPI, incontinence Musculoskeletal: denies: back pain, neck pain Integumentary: reports: no symptoms reported Neurological: denies: ataxia, dizziness/vertigo, headache/migraines, syncope, tremors Psychiatric: reports: no symptoms reported Endocrine: reports: no symptoms reported Hematologic/Lymphatic: reports: see HPI, easy bruising Allergic/Immunologic: reports: no symptoms reported All Other Systems: Reviewed and Negative Past History - Adult - PAST MEDICAL HISTORY-ADULT Review of Records: reports: Old Records Reviewed, Nursing Assessment Review, Medications Reviewed, Social history reviewed & non-contributory. Major Childhood Illnesses: reports: denies history Cardiovascular: reports: CAD, HTN, NM Respiratory: reports: COPD Gastrointestinal: reports: GERD Obstetrical/Gynecological: reports: denies history Genitourinary: reports: denies history Musculoskeletal: reports: denies history Neurological: reports: denies history Endocrine/Immune: reports: denies history Other Conditions: reports: denies history - PRIOR SURGERIES/PROCEDURES Surgical/Procedure History: reports: cardiac stent - IMMUNIZATION STATUS Childhood Immunizations: See Nurse Assessment Flu Vaccine: See Nurse Assessment - FAMILY HISTORY Family History: reviewed, not pertinent - SOCIAL HISTORY Smoking: denies Substance Use: denies Alcohol Use Frequency: never Living Situation: family Physical Exam-General - PHYSICAL EXAM-ADULT Initial Vital Signs Reviewed: Yes - CONSTITUTIONAL General Appearance: alert, no apparent distress, obese - EYES Eyes: PERRL/EOMI, pink conjunctivae - HEAD, EARS, NOSE, MOUTH & THROAT HENMT: negative: moist mucous membranes - NECK Neck: full range of motion, normal inspection - RESPIRATORY Respiratory: chest non-tender, lungs clear, normal breath sounds - CARDIOVASCULAR Cardiovascular: normal peripheral pulses, regular rate, rhythm - GASTROINTESTINAL (ABDOMEN) Abdominal Exam: normal bowel sounds, non tender, soft - LYMPHATIC Lymphatic: no adenopathy - MUSCULOSKELETAL Back Exam: normal inspection Extremity: normal inspection, normal capillary refill, pelvis stable. negative : normal gait - SKIN Integumentary: warm/dry, pallor - NEUROLOGIC Neurologic: grossly normal - PSYCHIATRIC Psych/Mental Status: normal mood/affect, normal thought content, normal thought process, oriented x 3 Progress - PLAN OF CARE/RESULTS Progress/Plan/Lab Results: Vital Signs - 8 hr 09/23/18 11:53 Temperature 99.0 F Pulse Rate 90 Respiratory Rate 12 Blood Pressure 113/62 O2 Sat by Pulse Oximetry 94 L Result Diagrams: 09/23/18 13:00 09/23/18 13:00 - REASSESSMENT Reassessment #1 Time Reassessed: 13:17 Status: unchanged Reassessment Comment: family still at bedside and pt is stable - EKG 1 Time of EKG reading by physician:: 12:00 EKG Read and Signed by:: Althea Rodrigues EKG Interpretation (*Must complete 3 of following elements*): Abnormal Rate: 74 Rhythm: afib Sumner: normal QRS: other (low voltage qrs) MS Interval: normal Comments: inferior infart age undertermined - CT/MRI 1 CT Study: Head Impression: See EMR Report (CT HEAD W/O CONTRAST - 09/23/2018 INDICATION: confusion COMPARISON: 02/01/2017 FINDINGS: There is stable mild to moderate periventricular white matter chronic microvascular disease. Stable old lacunae at the left basal ganglia and anterior limb of the left internal capsule. No intracranial mass or hemorrhage. There is stable fluid opacification of the mastoids bilaterally. The middle ears are clear. The paranasal sinuses are clear. The skull is intact. IMPRESSION: No acute disease or change from prior. This exam was performed using automated exposure control, adjustment of mA or kV according to patient size, and/or use of iterative reconstruction technique Electronically signed by Jama Godinez 09/23/2018 1:10 PM 1310 Interpreting Physician: Jama Godinez MD Dictated Date/Time: 09/23/18 1307 cc: Althea Rodrigues MD; None,PCP) - CONSULTS/PCP/HOSPITALIST Notification #1 *Consult/PCP/Hospitalist*: dr shipman cardio HH Time Discussed: 12:32 (dr shipman has not speken with this pt or family and is unaware they were in the er) Reason/Comments: phone consult #2 Consult: otis with dr skaggs is in the er and will speak with dr rodrigues Time Discussed: 15:17 Consult Disposition: Will see in ED Departure - Departure Date of Disposition Decision: 09/23/18 Time of Disposition Decision: 15:27 DIAGNOSIS: CHF (congestive heart failure) Qualifiers: Heart failure type: unspecified Heart failure chronicity: acute on chronic Qualified Code(s): I50.9 - Heart failure, unspecified Disposition: ADMITTED INPATIENT 09 Certified Medical Emergency: Emergent Condition: Stable Referrals and Follow-Ups: None,PCP [Primary Care Provider] - - Critical Care Note This patient required my direct & personal management of CC.: No Attestation - Physician/ FLOWER Attestation Patient care was provided by Advanced Practice Provider:: No The physician spent face to face time with patient:: Yes Advanced Practice Provider documentation review:: Supervising physician onsite and consulted in the evaluation and care of this patient. The physician did have a face to face encounter with the patient. This chart was documented by the indicated scribe, (Dee Greene Scribe) and accurately reflects the services I performed and decisions made by me, Althea Rodrigues MD, as attested by the provider's signature.
--- NOTE | 2018-09-23 15:29 | EKG Report ---
Test Performed on : 09/23/2018 12:00:39 PM Test Reason : afib Blood Pressure : / mmHG Vent. Rate : 074 BPM Atrial Rate : 441 BPM P-R Int : 000 ms QRS Dur : 078 ms QT Int : 364 ms P-R-T Axes : 000 -17 041 degrees QTc Int : 404 ms Atrial fibrillation. Low voltage QRS Possible Lateral infarct (cited on or before 12-FEB-2017) Inferior infarct (cited on or before 01-FEB-2017) Abnormal ECG When compared with ECG of 12-FEB-2017 12:17, Atrial fibrillation. has replaced Sinus rhythm. Nonspecific T wave abnormality no longer evident in Inferior leads Nonspecific T wave abnormality, improved in Lateral leads Unconfirmed Result
[2018-09-23] MEDS ORDERED: ZOFRAN IV PRN (17:02)
[2018-09-23] MEDS ORDERED: LASIX IV ONE (17:06)
[2018-09-23 18:05] LABS: BILIRUBIN URINE NEGATIVE (NEGATIVE); BLOOD URINE NEGATIVE (NEGATIVE); CLARITY SL. CLOUDY (CLEAR); COLOR YELLOW; GLUCOSE URINE NEGATIVE (NEGATIVE); KETONE URINE TRACE mg/dL (NEGATIVE); LEUKOCYTES URINE NEGATIVE (NEGATIVE); NITRITE URINE NEGATIVE (NEGATIVE); PROTEIN URINE TRACE mg/dL (NEGATIVE); URINE SOURCE CATH; UROBILINOGEN URINE NORMAL
[2018-09-23 18:06] LABS: URINE BACTERIA NEGATIVE /HFP; URINE CAST NONE SEEN /LPF; URINE CRYSTAL NONE SEEN /HPF; URINE EPITHELIAL CELLS <10 /HPF (<10); URINE RBC <10 /HPF (<10); URINE SMALL ROUND CELLS TRANSITIONAL PRESENT; URINE WBC <10 /HPF (<10); URINE YEAST NONE SEEN /HPF
[2018-09-23 18:33] LABS: CK INDEX 1.5 (0.0-2.5); CK-MB 3.58 ng/mL (0.0-5.0)
--- NOTE | 2018-09-23 18:33 | HISTORY AND PHYSICAL ---
PRIMARY CARE PROVIDER: WARREN Yoo, [facility]. CHIEF COMPLAINT: Confusion, failure to thrive, and fall. HISTORY OF PRESENT ILLNESS: This is a 77-year-old female with a prior history of systolic congestive heart failure, COPD, and chronic atrial fibrillation, who presented to the emergency room via EMS after being called by family members. Evidently, the patient has been becoming more confused over the last week. Reportedly, she has only eaten a few bites of food in 5 days. The patient's confusion has progressed to the point that the patient did not realize that her daughter had not been at her house with her over the last 5 days. She actually felt the daughter was still there. Today when the daughter got home, the patient was unable to open the door. They had to break in the house. They found the patient on the floor. She was incontinent of stool and urine, which is not common for her. In the emergency room, the patient is calm. She is in no distress. She is speaking in 4- to 5-word sentences, although she states that she feels much better than she did on arrival. PAST MEDICAL HISTORY: 1. Congestive heart failure, systolic with an ejection fraction of 30% in February 2017. 2. Chronic atrial fibrillation, on Eliquis. 3. History of recent DVT and PE, once again on Eliquis. 4. Chronic obstructive pulmonary disease. 5. CAD with 2-vessel disease, having a total proximal circumflex and a 95% to 99 % proximal RCA on heart catheterization in January 2017, for which they state that she has been treated medically. SURGICAL HISTORY: Bilateral knee replacements, bilateral femur ORIF secondary to falls, hysterectomy, appendectomy, tonsillectomy. SOCIAL HISTORY: She is . She lives with a daughter and grandson. Alcohol use: She states she does drink daily. She denies any drug abuse. ALLERGIES: No known drug allergies. HOME MEDICATIONS: A list will be obtained by the nursing staff and then we will review and restart as appropriate. REVIEW OF SYSTEMS: Unable to obtain from the patient. This is due to her confusion. PHYSICAL EXAMINATION: GENERAL: This is a 77-year-old female who is sitting up in the stretcher in the ER in no distress. VITAL SIGNS: Blood pressure is 129/51 with a heart rate of 67, respirations are 20-24, temperature is 99 degrees with O2 saturations 92% to 94% on room air and 98% on nasal cannula. EYES: Pupils equal, round, and react to light. EOMs are intact. Sclerae anicteric. HEENT: Head is normocephalic, atraumatic. Mucous membranes are moist. NECK: Supple with trachea midline. CARDIOVASCULAR: Regular rate and rhythm. S1 and S2 are appreciated. She does have some lower extremity edema from just about the mid thigh down bilateral with peripheral pulses palpable x4 extremities. PULMONARY: She does have some expiratory wheezes and some crackles at the bases. Chest rises and falls symmetric with respiration. Chest wall is nontender to palpation. GASTROINTESTINAL: Abdomen is large, soft, nontender, nondistended. Bowel sounds in all 4 quadrants. GENITOURINARY: She has no CVA nor suprapubic tenderness. NEUROLOGIC: She is alert. She is oriented to place, person, and family members. She does follow commands. SKIN: Warm and dry. DIAGNOSTIC STUDIES: WBC is 8.9 with hemoglobin 12.8, hematocrit 38.9, and platelets of 155,000. Sodium is 139, potassium 3.3, BUN 21, creatinine 0.9 with a glucose of 105. Troponin is negative. ProBNP is 4873. Blood cultures and urine culture are pending. CT of the head revealed no acute disease. Chest x-ray revealed cardiomegaly with pulmonary vascular congestion with an indeterminate infiltrate in the right lung base. ASSESSMENT AND PLAN: 1. Acute systolic congestive heart failure in the setting of chronic heart failure. 2. Altered mental status. 3. Fever. 4. Generalized weakness with recent fall. 5. Hypokalemia. 6. Chronic obstructive pulmonary disease (COPD) acute exacerbation in the setting of chronic pulmonary disease. 7. Recent pulmonary embolism (PE) and deep vein thrombosis (DVT). PLAN: The patient will be admitted to the medical/surgical floor placed on telemetry. We will identify her home medications and continue these as appropriate. She will continue her Eliquis. She will be placed on daily weights with strict intake and output. Will have IV diuresis. We will monitor her electrolytes as well as her renal function. We will consult Physical Therapy and [employer] for discharge planning. We will trend troponins and cardiac profiles. For DVT prophylaxis, of course, we will continue her Eliquis, and GI prophylaxis is Prilosec. Further treatments pending hospital course. Dictated by WARREN Childress for Jose Vail MD This chart was documented by, WARREN Childress and accurately reflects the services performed, treatment plan and medical decisions as attested by the providers signature Jose Vail MD. cc: WARREN Childress MD [facility]
[2018-09-23] MEDS: DUONEB (A & A) INH SCH (20:05)
[2018-09-23] MEDS: ADVAIR 500/50 DISKUS INH SCH (20:05)
[2018-09-23] MEDS: LIPITOR PO SCH (22:13)
[2018-09-23] MEDS: ELIQUIS PO SCH ×2 (22:13→22:14)
--- NOTE | 2018-09-23 22:59 | HISTORY AND PHYSICAL ---
ADDENDUM: Patient seen and examined by myself. Full note dictated and discussed with nurse practitioner. The patient presented to the hospital stating that her family thought she was confused, disoriented. She notes that she is feeling better now. States she really had not eaten in 5 days. She typically lives with her daughter, who has been out of town. We will admit her to the hospital and restart her home medications. We will get Physical Therapy involved. Further orders as needed. cc: Jose Vail MD
[2018-09-24] MEDS: DUONEB (A & A) INH SCH ×7 (00:09→23:41)
[2018-09-24 01:06] LABS: CK INDEX 1.5 (0.0-2.5); CK-MB 3.18 ng/mL (0.0-5.0)
[2018-09-24] MEDS: PRILOSEC PO SCH (06:04)
[2018-09-24] MEDS: TYLENOL PO PRN (06:04)
[2018-09-24] MEDS ORDERED: ZOFRAN IV PRN (06:14)
[2018-09-24] MEDS ORDERED: TYLENOL PO PRN (06:14)
[2018-09-24 07:31] LABS: ALBUMIN 2.7 g/dL (3.5-5.0); CALCIUM 8.1 mg/dL (8.8-10.2); MAGNESIUM 1.7 mg/dL (1.5-2.7); TOTAL PROTEIN 5.3 g/dL (6.3-8.3)
[2018-09-24 07:46] LABS: BASO# 0.01 X1000 (0.0-0.2); BASO% 0.1 % (0.0-0.8); EOS# 0.01 X1000 (0.0-0.7); EOS% 0.1 % (0.0-10.0); HEMATOCRIT 37.9 % (37.0-47.0); HEMOGLOBIN 12.5 g/dL (12.0-16.0); IMM GRAN# 0.03 X1000 (0.0-0.04); IMM GRAN% 0.3 % (0.0-0.5); LYMPH% 5.1 % (20.5-51.1); MONO# 0.34 X1000 (0.11-0.59); MONO% 2.9 % (1.7-9.3); MPV 12.4 FL (7.4-10.4); NEUT# 10.82 X1000 (1.4-6.5); NEUT% 91.5 % (42.2-75.2); PLT 161 X1000 (130-400); RBC 4.03 XMIL (4.2-5.4); RDW 13.2 % (11.5-14.5); WBC 11.81 X1000 (4.8-10.8)
[2018-09-24] MEDS: LASIX IV SCH ×2 (08:26→20:15)
[2018-09-24] MEDS: TOPROL XL PO SCH (08:28)
[2018-09-24] MEDS: ALDACTONE PO SCH (08:28)
[2018-09-24] MEDS: ZOSYN 3.375 GM in NS 50 ML IV SCH ×3 (08:29→20:14)
[2018-09-24] MEDS: ELIQUIS PO SCH ×4 (08:29→23:24)
[2018-09-24] MEDS ORDERED: KLOR-CON PO ONE (08:40)
[2018-09-24 10:10] LABS: LYMPHS 6 % (21-51); MONO 1 % (1-9); SEGS 93 % (42-75)
[2018-09-24] MEDS: ADVAIR 500/50 DISKUS INH SCH ×2 (11:55→19:52)
[2018-09-24] MEDS: LIPITOR PO SCH (20:15)
--- NOTE | 2018-09-24 22:26 | PROGRESS NOTE ---
DATE: 09/24/2018 SUBJECTIVE: The patient was seen and examined. Full note dictated and discussed with nurse practitioner. The patient notes that she is still having some fatigue, coughing and shortness of breath, but overall feels that those have improved. OBJECTIVE: Temperature 100, pulse 91, BP 123/64.General: The patient is awake, alert, currently in no distress. HEENT: Normocephalic. Neck: Supple. Cardiovascular: Regular rate. No murmurs. Chest: Clear. ASSESSMENT: 1. Congestive heart failure with exacerbation, systolic. 2. Likely pneumonia versus atelectasis. 3. Hyponatremia. 4. Hypokalemia. 5. Altered mental status. 6. Fever. PLAN: We will continue IV Lasix. Continue to replace potassium. Further orders as needed. cc: Jose Vail MD
[2018-09-25] MEDS ORDERED: CALMOSEPTINE OINTMENT TOP PRN (01:45)
[2018-09-25] MEDS: DUONEB (A & A) INH SCH ×6 (03:42→23:33)
[2018-09-25] MEDS: ZOSYN 3.375 GM in NS 50 ML IV SCH ×4 (03:53→23:52)
[2018-09-25] MEDS: PRILOSEC PO SCH (06:08)
[2018-09-25] MEDS: ADVAIR 500/50 DISKUS INH SCH ×2 (08:18→19:30)
[2018-09-25] MEDS: TOPROL XL PO SCH (09:40)
[2018-09-25] MEDS: ALDACTONE PO SCH (09:40)
[2018-09-25] MEDS: ELIQUIS PO SCH ×4 (09:40→21:46)
[2018-09-25] MEDS: LASIX IV SCH (09:40)
--- NOTE | 2018-09-25 11:29 | Diag Imaging Result Doc PS360 ---
EXAM: CHEST-2 VIEWS - 09/25/2018 HISTORY: hypoxia TECHNIQUE: Chest two views COMPARISON: 09/23/2018 one view chest FINDINGS: There is cardiomegaly similar to prior. There is consolidation at the right lower lobe which is grossly similar to prior, allowing for differences in technical factors. There is stable slight prominence of left perihilar markings. There is no substantial pleural effusion or pneumothorax identified. IMPRESSION: Stable cardiomegaly. Right lower lobe consolidation consistent with pneumonia. Electronically signed by Kirit Swenson 09/25/2018 11:27 AM
[2018-09-25] MEDS: TYLENOL PO PRN (16:40)
[2018-09-25] MEDS: LIPITOR PO SCH (21:46)
--- NOTE | 2018-09-25 23:55 | PROGRESS NOTE ---
DATE: 09/25/2018 SUBJECTIVE: The patient notes that she is starting to feel better. She has not really been out of bed. Denies any chest pain, palpitations. Denies any fevers or chills. Cough is improving. Shortness of breath is improved. PHYSICAL EXAMINATION: Vital Signs: Temperature 98, pulse 93, respiratory rate 20, blood pressure 109/54. General: Patient is awake, alert, currently in no respiratory distress. HEENT: Normocephalic. Neck: Supple. Cardiovascular: Regular rate. Chest: Decreased, but equal breath sounds. Positive rhonchi. Occasional crackles. Abdomen: Soft, nondistended. Extremities: Moves all extremities. Neurologic: No focal changes. ASSESSMENT: 1. [id number] systolic congestive heart failure. 2. Hyponatremia. 3. Hypokalemia. 4. Leukocytosis. 5. Hyperglycemia. 6. Chronic obstructive pulmonary disease. PLAN: We will continue patient in the hospital. She is currently on Lasix IV, and Zosyn. We will continue to encourage ambulation. Hopefully, home over the next 1 or 2 days. cc: Jose Vail MD
[2018-09-26] MEDS: DUONEB (A & A) INH SCH ×4 (03:18→12:12)
[2018-09-26] MEDS: ZOSYN 3.375 GM in NS 50 ML IV SCH (05:25)
[2018-09-26] MEDS: PRILOSEC PO SCH ×2 (05:25→06:01)
[2018-09-26 05:46] VITALS: BP 110/65
[2018-09-26] MEDS: ADVAIR 500/50 DISKUS INH SCH (07:59)
[2018-09-26] MEDS ORDERED: DOXYCYCLINE PO SCH (09:00)
[2018-09-26] MEDS ORDERED: OMNICEF PO SCH (09:00)
[2018-09-26] MEDS: TOPROL XL PO SCH (09:01)
[2018-09-26] MEDS: ALDACTONE PO SCH (09:02)
[2018-09-26] MEDS: ELIQUIS PO SCH (09:09)
[2018-09-26] MEDS ORDERED: KLOR-CON PO ONE (10:29)
--- NOTE | 2018-09-26 11:40 | DISCHARGE SUMMARY ---
ADMISSION DATE: 09/23/2018 DISCHARGE DATE: 09/26/2018 DIAGNOSES: 1. Acute on chronic systolic congestive heart failure, resolved. 2. Hyponatremia, resolved. 3. Hypokalemia. 4. Leukocytosis. 5. Hyperglycemia. 6. COPD. DIAGNOSTICS: 1. 09/23/2018, chest x-ray revealed cardiomegaly and pulmonary vascular congestion with indeterminate infiltrate in the right base. 2. 09/23/2018, CT of the head revealed stable mild to moderate periventricular white matter chronic microvascular disease. Stable old lacunae at the left basal ganglia and anterior limb of the left internal capsule. No intracranial mass or hemorrhage. There is stable fluid opacification of the mastoids bilateral. The middle ears are clear. The paranasal sinuses are clear. The skull is intact. 3. 09/25/2018, chest x-ray reveals stable cardiomegaly with right lower lobe consolidation consistent with pneumonia. MICROBIOLOGY: Blood cultures revealed no growth after 48 hours x2 cultures. HOSPITAL COURSE: Ms Egan presented to the emergency room being confused and only eating a few bites of food in the previous 5 days. She was found to be in systolic congestive heart failure exacerbation for which she has been diuresed and she is negative cumulatively 1540. Her mental status has improved and the family does feel like that she is been back to her baseline. She was evaluated by Physical Therapy, who stated the patient was very deconditioned and not safe to return home alone. They recommended inpatient rehab. Thankfully, she and the family members agreed and she is being discharged to [facility] in stable condition. DISCHARGE PHYSICAL EXAMINATION: Vital Signs: Blood pressure is 110/65 with a heart rate of 85, respirations are 20, temperature is 98.4 degrees oral with room air saturations 94 to 99%. Cardiovascular: Irregularly irregular rate and rhythm. S1 and S2 appreciated. Extremities: She has some pretibial edema. Peripheral pulses palpable x4 extremities. Pulmonary: Breath sounds are clear but diminished with no increased work of breathing noted. Gastrointestinal: Abdomen is soft, nontender, nondistended with bowel sounds in all 4 quadrants. Neurologic: She is alert, she is oriented x3. DISCHARGE MEDICATIONS: 1. Doxycycline 100 mg p.o. b.i.d. for 5 days. 2. Omnicef 300 mg p.o. b.i.d. for 5 days. 3. Aldactone 12.5 mg p.o. daily. 4. Klor-Con 20 mEq p.o. b.i.d. 5. Toprol-XL 25 mg p.o. daily. 6. Cozaar 25 mg p.o. daily. 7. Lasix 40 mg p.o. b.i.d. 8. Advair 50/500, one puff b.i.d. 9. Lexapro 10 mg p.o. daily. 10. Plavix 75 mg p.o. daily. 11. Eliquis 5 mg p.o. b.i.d. 12. Tylenol 500 mg p.o. q.6 hours p.r.n. 13. Lipitor 80 mg p.o. at bedtime. 14. DuoNeb q.4 hours p.r.n. wheezing. DISCHARGE DISPOSITION: She is being discharged and transferred to [facility] in stable condition with family members present. TIME SPENT: This is a greater than 30 minute discharge. Dictated by WARREN Childress for Jose Vail MD This chart was documented by, WARREN Childress and accurately reflects the services performed, treatment plan and medical decisions as attested by the providers signature Jose Vail MD. cc: WARREN Childress MD
--- NOTE | 2018-09-27 19:00 | DISCHARGE SUMMARY ---
ADMISSION DATE: 09/23/2018 DISCHARGE DATE: 09/26/2018 ADDENDUM: Patient seen examined by myself, full note dictated and discussed with nurse practitioner. On discharge patient is awake, alert, currently in no distress. She notes that she is ambulating at her usual pace. She will be discharged home on antibiotics, breathing treatments and will follow up outpatient with primary care. Please see full note. cc: Jose Vail MD
== END 2018-09-26 14:12 | DRG 291 ==
LOC: P.ED 11:53 → P.MEDSURG 18:47
PROVIDERS: ATTEND Family Medicine
CPT/HCPCS: 51702; 70450; 71010; 71020; 71045; 71046; 80053; 80307; 80320; 81001; 82055; 82550; 82553; 83605; 83735; 83880; 84443; 84484; 85025; 85610; 85730; 87040; 93005; 94640; 94761; 96374; 97110; 97163; 97530; 99285; A9270; G0480; G6040; J1940; J2543